=== PATIENT | male | born 1960 | race African-American/Black ===

== ENCOUNTER 2017-02-20 12:07 | Emergency (ER) | payer OTHER ==
[~2017-02-20] VITALS: Ht 172.7 cm; Wt 75.0 kg
[2017-02-20] MEDS ORDERED: IOHEXOL-300 100 ML BOTTLE ONE (12:11)
[2017-02-20] MEDS ORDERED: SODIUM CHLORIDE 0.9% 10ML VIAL ONE (12:11)
[2017-02-20] MEDS ORDERED: ONDANSETRON HCL 4MG/2ML VIAL IV STA (12:30)
[2017-02-20] MEDS ORDERED: MORPHINE SULFATE 4 MG/ML CPJ (NOT FOR IM USE) IV STA (12:30)
[2017-02-20] MEDS ORDERED: SODIUM CHLORIDE 0.9% 1,000 ML IV ONE (12:30)
[2017-02-20 12:53] LABS: HEMATOCRIT. 30.1 % (42.0-52.0); HEMOGLOBIN. 9.9 g/dL (14.0-18.0); MEAN CORPUSCULAR HEMOGLOBIN 31.3 pg (28.0-32.0); MEAN CORPUSCULAR VOLUME 95.1 fL (80.0-94.0); MEAN PLATELET VOLUME 7.2 fl (7.4-10.4); PLATELET 637 x1000/uL (130-400); RED BLOOD CELL COUNT 3.17 mill/uL (4.7-6.1); RED CELL DISTRIBUTION WIDTH 13.9 % (11.6-14.6)
[2017-02-20 12:58] LABS: PROTHROMBIN TIME 10.5 sec (9.4-11.6)
[2017-02-20] MEDS ORDERED: MORPHINE SULFATE 4 MG/ML CPJ (NOT FOR IM USE) IV ONE (13:00)
[2017-02-20] MEDS ORDERED: METOCLOPRAMIDE HCL 10MG/2ML VIAL IV ONE (13:00)
[2017-02-20 13:04] LABS: CARBON DIOXIDE 31 mEq/L (21-32); CHLORIDE 97 mEq/L (98-107)
[2017-02-20 13:09] LABS: TROPONIN I < 0.02 ng/mL (0.00-0.04)
[2017-02-20 13:13] LABS: PLATELET ESTIMATE INCREASED
[2017-02-20 18:30] VITALS: BP 160/91
== END 2017-02-20 18:53 | disposition home or self-care (01) ==
LOC: ER 12:35 → CANRESERV 15:18 → ENRESERV 15:18 → CANBEDREQ 17:20 → ER 18:53
DX: R10.84 Generalized abdominal pain (principal); R11.10 Vomiting, unspecified; I10 Essential (primary) hypertension; Z93.3 Colostomy status
CPT/HCPCS: 36415; 71010; 74177; 80053; 83605; 83690; 83880; 84484; 85025; 85610; 87040; 93005; 96374; 96375; 96376; 99285; A4216; J2270; J2765; Q9967; Z7610; J7030

== ENCOUNTER 2017-02-23 00:16 | Emergency (ER) | payer OTHER ==
[~2017-02-23] VITALS: Ht 175.3 cm; Wt 54.0 kg
[2017-02-23] MEDS ORDERED: HYDROCODONE/ACETAMINOPHEN 10/325MG TABLET PO ONE (01:00)
[2017-02-23 01:04] VITALS: BP 125/58
== END 2017-02-23 04:00 | disposition home or self-care (01) ==
LOC: ER 00:16
DX: Z46.6 Encounter for fitting and adjustment of urinary device (principal); R30.0 Dysuria; F17.200 Nicotine dependence, unspecified, uncomplicated; I10 Essential (primary) hypertension; E78.00 Pure hypercholesterolemia, unspecified; Z93.3 Colostomy status
CPT/HCPCS: 51702; 99284; Z7610; A4315

== ENCOUNTER 2017-02-23 19:38 | Emergency (ER) | payer OTHER ==
[~2017-02-23] VITALS: Ht 167.6 cm; Wt 73.0 kg
[2017-02-23 20:04] VITALS: BP 153/86
== END 2017-02-23 22:00 | disposition left against medical advice (07) ==
LOC: ER 19:38
DX: R10.9 Unspecified abdominal pain (principal); R20.2 Paresthesia of skin; Z98.890 Other specified postprocedural states; Z53.21 Procedure and treatment not carried out due to patient leaving prior to being seen by health care provider

== ENCOUNTER 2017-02-24 04:41 | Inpatient (IN) | payer OTHER ==
[~2017-02-24] VITALS: Ht 175.3 cm; Wt 61.2 kg
[2017-02-24] MEDS ORDERED: KETOROLAC 30MG/ML VIAL IV STA (08:28)
[2017-02-24] MEDS ORDERED: ONDANSETRON HCL 4MG/2ML VIAL IV STA (08:28)
[2017-02-24] MEDS ORDERED: MORPHINE SULFATE 4 MG/ML CPJ (NOT FOR IM USE) IV ONE ×2 (08:45→12:45)
[2017-02-24] MEDS ORDERED: METOCLOPRAMIDE HCL 10MG/2ML VIAL IV ONE (09:00)
[2017-02-24 09:03] LABS: BASOPHILS % 0.9 % (0.0-2.0); EOSINOPHILS % 0.4 % (0.0-5.0); HEMATOCRIT. 29.7 % (42.0-52.0); HEMOGLOBIN. 9.9 g/dL (14.0-18.0); MEAN CORPUSCULAR HEMOGLOBIN 32.2 pg (28.0-32.0); MEAN CORPUSCULAR VOLUME 96.2 fL (80.0-94.0); MEAN PLATELET VOLUME 7.3 fl (7.4-10.4); MONOCYTES % 5.3 % (2.0-8.0); NEUTROPHILS % 83.4 % (40.0-76.0); PLATELET 610 x1000/uL (130-400); RED BLOOD CELL COUNT 3.09 mill/uL (4.7-6.1); RED CELL DISTRIBUTION WIDTH 14.8 % (11.6-14.6)
[2017-02-24 09:10] LABS: PROTHROMBIN TIME 10.8 sec (9.4-11.6)
[2017-02-24 09:12] LABS: CHLORIDE 106 mEq/L (98-107)
[2017-02-24 09:24] LABS: CARBON DIOXIDE 29 mEq/L (21-32)
[2017-02-24] MEDS ORDERED: IOHEXOL-300 100 ML BOTTLE ONE (10:00)
[2017-02-24] MEDS ORDERED: SODIUM CHLORIDE 0.9% 10ML VIAL ONE (10:00)
[2017-02-24 11:36] LABS: CLARITY URINE CLOUDY (CLEAR); COLOR URINE YELLOW (YELLOW); GLUCOSE URINE NEGATIVE (NEGATIVE); KETONES URINE NEGATIVE (NEGATIVE); LEUKOCYTE ESTERASE URINE TRACE (NEGATIVE); NITRITE URINE NEGATIVE (NEGATIVE); OCCULT BLOOD URINE 3+ (NEGATIVE); PROTEIN URINE 2+ (NEGATIVE); SPECIFIC GRAVITY URINE 1.022 (1.005-1.030)
[2017-02-24] MEDS ORDERED: AMLODIPINE 2.5MG TABLET PO ONE (14:30)
[2017-02-24] MEDS ORDERED: HYDRALAZINE 20MG/ML VIAL IV NR (15:08)
[2017-02-24] MEDS ORDERED: IPRATROPIUM/ALBUTEROL 0.5-3(2.5)MG/3ML NEB INH PRN (15:30)
[2017-02-24 16:49] LABS: CARBON DIOXIDE 31 mEq/L (21-32); CHLORIDE 100 mEq/L (98-107); TOTAL IRON BINDING CAPACITY 398 ug/dL (250-450)
[2017-02-24] MEDS: ENALAPRIL 2.5MG/2ML VIAL 2ML IV SCH (17:22)
[2017-02-24 17:33] LABS: *AMPHETAMINES SCREEN URINE NEGATIVE (NEGATIVE); *BARBITURATES SCREEN URINE NEGATIVE (NEGATIVE); *BENZODIAZEPINES SCREEN URINE NEGATIVE (NEGATIVE); *COCAINE SCREEN URINE PRESUMTIVE POSITIVE (NEGATIVE); CANNABINOID URINE SCREEN PRESUMTIVE POSITIVE (NEGATIVE); METHADONE URINE SCREEN NEGATIVE (NEGATIVE); OPIATES URINE SCREEN NEGATIVE (NEGATIVE); PHENCYCLIDINE URINE SCREEN NEGATIVE (NEGATIVE)
[2017-02-24] MEDS: SODIUM CHLORIDE 0.9% 1,000 ML IV SCH (19:52)
[2017-02-24 20:10] VITALS: BP 113/71
[2017-02-24] MEDS: LORAZEPAM 2MG/ML CPJ IV PRN (23:02)
[2017-02-24 23:59] LABS: CREATINE KINASE 78 IU/L (39-308); TROPONIN I < 0.02 ng/mL (0.00-0.04)
[2017-02-25] VITALS (8 sets, daily range): BP systolic 111–213; BP diastolic 52–116
[2017-02-25 00:04] LABS: CREATINE KINASE MB FRACTION 1.3 ng/mL (0.5-3.6)
[2017-02-25] MEDS ORDERED: AMLO5TAB4 PO (02:23)
[2017-02-25] MEDS: ENALAPRIL 2.5MG/2ML VIAL 2ML IV SCH ×5 (03:29→23:13)
[2017-02-25] MEDS: LORAZEPAM 2MG/ML CPJ IV PRN ×2 (06:02→22:28)
[2017-02-25 07:39] LABS: BASOPHILS % 0.9 % (0.0-2.0); EOSINOPHILS % 0.4 % (0.0-5.0); HEMATOCRIT. 29.1 % (42.0-52.0); HEMOGLOBIN. 9.6 g/dL (14.0-18.0); MEAN CORPUSCULAR HEMOGLOBIN 31.6 pg (28.0-32.0); MEAN CORPUSCULAR VOLUME 95.8 fL (80.0-94.0); MONOCYTES % 6.1 % (2.0-8.0); NEUTROPHILS % 80.6 % (40.0-76.0); PLATELET 616 x1000/uL (130-400); RED BLOOD CELL COUNT 3.04 mill/uL (4.7-6.1); RED CELL DISTRIBUTION WIDTH 15.1 % (11.6-14.6)
[2017-02-25 08:11] LABS: CREATINE KINASE 58 IU/L (39-308); HDL CHOLESTEROL 57 mg/dL (40-59); LDL CHOLESTEROL 103 mg/dL (5-100)
[2017-02-25 08:18] LABS: CREATINE KINASE MB FRACTION 0.9 ng/mL (0.5-3.6); TROPONIN I < 0.02 ng/mL (0.00-0.04)
[2017-02-25 09:12] LABS: CLARITY URINE CLEAR (CLEAR); COLOR URINE YELLOW (YELLOW); GLUCOSE URINE NEGATIVE (NEGATIVE); KETONES URINE NEGATIVE (NEGATIVE); LEUKOCYTE ESTERASE URINE NEGATIVE (NEGATIVE); NITRITE URINE NEGATIVE (NEGATIVE); OCCULT BLOOD URINE 1+ (NEGATIVE); PH URINE 6.5 (4.5-8.0); PROTEIN URINE 1+ (NEGATIVE); UROBILINOGEN URINE 0.2 E.U./dL (0.2-1.0)
[2017-02-25 09:48] LABS: T4 FREE 1.13 ng/dL (0.76-1.46)
[2017-02-25] MEDS: PIPERACILLIN/TAZ 3.375G PREMIX 50 ML IV SCH ×2 (10:25→17:32)
[2017-02-25] MEDS: SODIUM CHLORIDE 0.9% 1,000 ML IV SCH (10:26)
[2017-02-25] MEDS: MORPHINE SULFATE 2 MG/ML CPJ (NOT FOR IM USE) IV PRN ×3 (11:09→19:40)
[2017-02-25] MEDS ORDERED: PNEUMOCOCCAL 23-VAL P-SAC VAC 0.5 ML IM ONE (12:00)
[2017-02-25] MEDS: ONDANSETRON HCL 4MG/2ML VIAL IV PRN (20:28)
[2017-02-25] MEDS: HYDRALAZINE 20MG/ML VIAL IV PRN (21:49)
[2017-02-26] MEDS: PIPERACILLIN/TAZ 3.375G PREMIX 50 ML IV SCH ×3 (02:45→18:18)
[2017-02-26] MEDS: ENALAPRIL 2.5MG/2ML VIAL 2ML IV SCH (05:26)
[2017-02-26 07:19] LABS: BASOPHILS % 0.7 % (0.0-2.0); EOSINOPHILS % 0.2 % (0.0-5.0); HEMATOCRIT. 32.1 % (42.0-52.0); HEMOGLOBIN. 10.7 g/dL (14.0-18.0); LYMPHOCYTES % 11.8 % (20.0-50.0); MEAN CORPUSCULAR HEMOGLOBIN 31.9 pg (28.0-32.0); MEAN CORPUSCULAR VOLUME 95.9 fL (80.0-94.0); MEAN PLATELET VOLUME 7.2 fl (7.4-10.4); NEUTROPHILS % 81.3 % (40.0-76.0); PLATELET 614 x1000/uL (130-400); RED BLOOD CELL COUNT 3.34 mill/uL (4.7-6.1); RED CELL DISTRIBUTION WIDTH 15.1 % (11.6-14.6)
[2017-02-26 08:12] LABS: CARBON DIOXIDE 31 mEq/L (21-32); CHLORIDE 99 mEq/L (98-107)
[2017-02-26 09:42] VITALS: BP 193/99
[2017-02-26] MEDS: MORPHINE SULFATE 2 MG/ML CPJ (NOT FOR IM USE) IV PRN ×3 (09:53→21:29)
[2017-02-26] MEDS: ONDANSETRON HCL 4MG/2ML VIAL IV PRN (09:53)
[2017-02-26] MEDS: HYDRALAZINE 20MG/ML VIAL IV PRN (09:53)
[2017-02-26] MEDS: SODIUM CHLORIDE 0.9% 1,000 ML IV SCH (10:04)
[2017-02-26 11:25] VITALS: BP 193/115
[2017-02-26] MEDS: METOCLOPRAMIDE HCL 10MG/2ML VIAL IV SCH ×2 (11:31→18:18)
[2017-02-26] MEDS: ENALAPRIL 1.25MG/ML VIAL 1ML IV SCH ×2 (11:32→18:00)
[2017-02-26 13:28] VITALS: BP 137/82
[2017-02-26 16:00] VITALS: BP 120/70
[2017-02-26 20:00] VITALS: BP 123/65
[2017-02-27] VITALS: BP 137/78
[2017-02-27] MEDS: ENALAPRIL 1.25MG/ML VIAL 1ML IV SCH ×5 (02:41→23:36)
[2017-02-27] MEDS: METOCLOPRAMIDE HCL 10MG/2ML VIAL IV SCH ×5 (02:42→23:35)
[2017-02-27] MEDS: PIPERACILLIN/TAZ 3.375G PREMIX 50 ML IV SCH ×3 (02:42→18:23)
[2017-02-27 04:00] VITALS: BP 139/79
[2017-02-27] MEDS ORDERED: DIATR MEGLU/DIATRIZOATE SOLN 120ML ONE (07:00)
[2017-02-27 07:30] LABS: EOSINOPHILS % 0.8 % (0.0-5.0); HEMATOCRIT. 27.6 % (42.0-52.0); HEMOGLOBIN. 9.3 g/dL (14.0-18.0); LYMPHOCYTES % 16.6 % (20.0-50.0); MEAN CORPUSCULAR VOLUME 95.5 fL (80.0-94.0); MEAN PLATELET VOLUME 7.1 fl (7.4-10.4); MONOCYTES % 9.3 % (2.0-8.0); NEUTROPHILS % 72.3 % (40.0-76.0); PLATELET 528 x1000/uL (130-400); RED BLOOD CELL COUNT 2.89 mill/uL (4.7-6.1); RED CELL DISTRIBUTION WIDTH 14.9 % (11.6-14.6)
[2017-02-27 08:00] VITALS: BP 142/81
[2017-02-27 08:39] LABS: CARBON DIOXIDE 31 mEq/L (21-32); CHLORIDE 101 mEq/L (98-107)
[2017-02-27] MEDS: SODIUM CHLORIDE 0.9% 1,000 ML IV SCH ×2 (10:29→11:24)
[2017-02-27 12:00] VITALS: BP 154/84
[2017-02-27] MEDS: ACETAMINOPHEN 325MG TABLET PO PRN ×3 (12:21→21:43)
[2017-02-27 16:00] VITALS: BP 124/98
[2017-02-27 20:00] VITALS: BP 134/76
[2017-02-28] VITALS: BP 150/66
[2017-02-28] MEDS: PIPERACILLIN/TAZ 3.375G PREMIX 50 ML IV SCH ×2 (02:24→09:17)
[2017-02-28 04:00] VITALS: BP 139/79
[2017-02-28] MEDS: METOCLOPRAMIDE HCL 10MG/2ML VIAL IV SCH ×3 (06:25→16:12)
[2017-02-28] MEDS: ENALAPRIL 1.25MG/ML VIAL 1ML IV SCH ×2 (06:27→11:52)
[2017-02-28 07:26] LABS: BASOPHILS % 0.9 % (0.0-2.0); HEMATOCRIT. 28.1 % (42.0-52.0); HEMOGLOBIN. 9.4 g/dL (14.0-18.0); LYMPHOCYTES % 21.5 % (20.0-50.0); MEAN CORPUSCULAR HEMOGLOBIN 31.8 pg (28.0-32.0); MEAN CORPUSCULAR VOLUME 95.6 fL (80.0-94.0); MEAN PLATELET VOLUME 6.6 fl (7.4-10.4); MONOCYTES % 9.8 % (2.0-8.0); NEUTROPHILS % 65.8 % (40.0-76.0); PLATELET 499 x1000/uL (130-400); RED BLOOD CELL COUNT 2.94 mill/uL (4.7-6.1); RED CELL DISTRIBUTION WIDTH 15.1 % (11.6-14.6)
[2017-02-28 07:52] LABS: CARBON DIOXIDE 28 mEq/L (21-32); CHLORIDE 104 mEq/L (98-107)
[2017-02-28 08:00] VITALS: BP 158/82
[2017-02-28 11:52] VITALS: BP 157/89
[2017-02-28] MEDS ORDERED: CLONIDINE 0.1MG TABLET PO PRN (13:00)
[2017-02-28 16:00] VITALS: BP 133/77
[2017-02-28] MEDS: ACETAMINOPHEN 325MG TABLET PO PRN (18:02)
[2017-02-28] MEDS: HYDROCODONE/ACETAMINOPHEN 5/325MG TABLET PO PRN ×2 (18:21→22:23)
[2017-02-28 20:02] VITALS: BP 132/80
[2017-03-01] VITALS: BP 115/78
[2017-03-01] MEDS: HYDROCODONE/ACETAMINOPHEN 5/325MG TABLET PO PRN ×2 (02:34→06:26)
[2017-03-01 04:00] VITALS: BP 165/86
[2017-03-01] MEDS: METOCLOPRAMIDE HCL 10MG/2ML VIAL IV SCH ×3 (05:54→12:00)
[2017-03-01 08:05] VITALS: BP 148/85
[2017-03-01 12:00] VITALS: BP 155/85
[2017-03-01 14:00] VITALS: BP 155/85
== END 2017-03-01 14:20 | disposition home or self-care (01) | DRG 247 ==
LOC: ER 04:41 → 8WST 14:14 → ENRESERV 15:26
PROVIDERS: ADMIT Internal Medicine; ATTEND Internal Medicine
DX: K56.69 Other intestinal obstruction (principal); E44.0 Moderate protein-calorie malnutrition; R65.10 Systemic inflammatory response syndrome (SIRS) of non-infectious origin without acute organ dysfunction; I10 Essential (primary) hypertension; J44.9 Chronic obstructive pulmonary disease, unspecified; F17.210 Nicotine dependence, cigarettes, uncomplicated; G40.909 Epilepsy, unspecified, not intractable, without status epilepticus; N39.0 Urinary tract infection, site not specified; F19.10 Other psychoactive substance abuse, uncomplicated; Z79.899 Other long term (current) drug therapy; Z90.49 Acquired absence of other specified parts of digestive tract; Z93.3 Colostomy status
CPT/HCPCS: 36415; 74000; 74177; 74250; 80048; 80053; 80061; 80305; 81001; 82270; 82550; 82553; 83540; 83550; 83690; 83735; 84439; 84443; 84481; 84484; 85025; 85044; 85610; 87040; 87086; 90732; 93005; 93970; 96374; 96375; 96376; 97116; 97162; 97530; 99285; A4216; J0360; J2060; J2270; J2405; J2543; J2765; J3490; J7030; Q9963; Q9967; A4315

== ENCOUNTER 2017-03-26 14:29 | Inpatient (IN) | payer OTHER ==
[~2017-03-26] VITALS: Ht 175.3 cm; Wt 59.0 kg
[~2017-03-26 14:29] MED LIST: AMLO5TAB4 PO
[2017-03-26] MEDS ORDERED: SODIUM CHLORIDE 0.9% 1,000 ML IV ONE (15:20)
[2017-03-26] MEDS ORDERED: ONDANSETRON HCL 4MG/2ML VIAL IV STA (15:20)
[2017-03-26] MEDS ORDERED: MORPHINE SULFATE 4 MG/ML CPJ (NOT FOR IM USE) IV STA (15:20)
[2017-03-26] MEDS ORDERED: HYDRALAZINE 20MG/ML VIAL IV ONE ×2 (15:30→16:45)
[2017-03-26 16:08] LABS: BASOPHILS % 0.8 % (0.0-2.0); EOSINOPHILS % 0.7 % (0.0-5.0); HEMATOCRIT. 33.2 % (42.0-52.0); HEMOGLOBIN. 10.9 g/dL (14.0-18.0); LYMPHOCYTES % 15.1 % (20.0-50.0); MEAN CORPUSCULAR HEMOGLOBIN 31.7 pg (28.0-32.0); MEAN CORPUSCULAR VOLUME 96.4 fL (80.0-94.0); MEAN PLATELET VOLUME 7.1 fl (7.4-10.4); MONOCYTES % 4.7 % (2.0-8.0); NEUTROPHILS % 78.7 % (40.0-76.0); PLATELET 333 x1000/uL (130-400); RED BLOOD CELL COUNT 3.44 mill/uL (4.7-6.1)
[2017-03-26 16:09] LABS: CHLORIDE 103 mEq/L (98-107)
[2017-03-26 16:11] LABS: PARTIAL THROMBOPLASTIN TIME 23.7 sec (23.4-31.0); PROTHROMBIN TIME 10.5 sec (9.4-11.6)
[2017-03-26 16:18] LABS: CARBON DIOXIDE 30 mEq/L (21-32)
[2017-03-26 16:19] LABS: TROPONIN I < 0.02 ng/mL (0.00-0.04)
[2017-03-26 16:44] LABS: CLARITY URINE CLEAR (CLEAR); COLOR URINE YELLOW (YELLOW); GLUCOSE URINE NEGATIVE (NEGATIVE); KETONES URINE NEGATIVE (NEGATIVE); LEUKOCYTE ESTERASE URINE NEGATIVE (NEGATIVE); NITRITE URINE NEGATIVE (NEGATIVE); OCCULT BLOOD URINE NEGATIVE (NEGATIVE); PH URINE 8.5 (4.5-8.0); PROTEIN URINE NEGATIVE (NEGATIVE); UROBILINOGEN URINE 0.2 E.U./dL (0.2-1.0)
[2017-03-26] MEDS ORDERED: MORPHINE SULFATE 4 MG/ML CPJ (NOT FOR IM USE) IV ONE (18:30)
[2017-03-26] MEDS ORDERED: ONDANSETRON HCL 4MG/2ML VIAL IV ONE (19:00)
[2017-03-26] MEDS ORDERED: CLONIDINE 0.2MG TABLET PO ONE (19:15)
[2017-03-26] MEDS ORDERED: METOCLOPRAMIDE HCL 10MG/2ML VIAL IV ONE (19:15)
[2017-03-26] MEDS ORDERED: CLONIDINE 0.1MG TABLET PO ONE (21:00)
[2017-03-27] VITALS (7 sets, daily range): BP systolic 104–142; BP diastolic 59–73
[2017-03-27] MEDS ORDERED: SERT25TA74 PO (01:13)
[2017-03-27] MEDS ORDERED: LOSA50TA20 PO (01:13)
[2017-03-27] MEDS ORDERED: HYDR25TA PO (01:13)
[2017-03-27] MEDS ORDERED: ONDANSETRON HCL 4MG/2ML VIAL IV PRN (02:30)
[2017-03-27] MEDS ORDERED: CLONIDINE 0.1MG TABLET PO PRN ×2 (02:30→02:45)
[2017-03-27] MEDS: DEXT 5%/0.45% NACL KCL 20MEQ/L 1,000 ML IV SCH ×2 (04:06→12:29)
[2017-03-27] MEDS: METOCLOPRAMIDE HCL 10MG/2ML VIAL IV SCH ×2 (06:20→12:00)
[2017-03-27 08:36] LABS: CARBON DIOXIDE 29 mEq/L (21-32); CHLORIDE 101 mEq/L (98-107)
[2017-03-27 08:41] LABS: HDL CHOLESTEROL 76 mg/dL (40-59); LDL CHOLESTEROL 111 mg/dL (5-100)
[2017-03-27] MEDS: AMLODIPINE 5MG TABLET PO SCH ×2 (08:45→08:56)
[2017-03-27] MEDS: LEVETIRACETAM 500MG TABLET PO SCH ×2 (08:45→08:55)
[2017-03-27] MEDS: SERTRALINE HCL 25MG TABLET PO SCH ×2 (08:45→08:56)
[2017-03-27] MEDS: MORPHINE SULFATE 4 MG/ML CPJ (NOT FOR IM USE) IV PRN ×2 (09:31→17:09)
[2017-03-27] MEDS ORDERED: INFLUENZA VIRUS VACCINE 0.5ML SYR IM ONE (12:00)
== END 2017-03-27 18:35 | disposition home or self-care (01) | DRG 282 ==
LOC: ER 14:29 → 5WST 15:23 → EDBEDREQ 20:18 → ENRESERV 20:37
PROVIDERS: ADMIT Internal Medicine; ATTEND Internal Medicine
DX: K85.90 Acute pancreatitis without necrosis or infection, unspecified (principal); R18.8 Other ascites; I16.0 Hypertensive urgency; R11.2 Nausea with vomiting, unspecified; I10 Essential (primary) hypertension; K80.20 Calculus of gallbladder without cholecystitis without obstruction; Z93.3 Colostomy status; Z79.899 Other long term (current) drug therapy
CPT/HCPCS: 36415; 71010; 74176; 80053; 80061; 81003; 83690; 84484; 85025; 85610; 85730; 86850; 86900; 90686; 93005; 96361; 96374; 96375; 96376; 99285; J0360; J2270; J2405; J2765; J7030

== ENCOUNTER 2017-09-24 13:23 | Emergency (ER) | payer OTHER ==
[~2017-09-24] VITALS: Ht 177.8 cm; Wt 69.0 kg
[~2017-09-24 13:23] MED LIST changes: +HYDR25TA PO; +LOSA50TA20 PO; +SERT25TA74 PO
[2017-09-24 13:34] VITALS: BP 183/81
== END 2017-09-24 16:30 | disposition home or self-care (01) ==
LOC: ER 14:28
DX: Z43.3 Encounter for attention to colostomy (principal); I10 Essential (primary) hypertension; G40.909 Epilepsy, unspecified, not intractable, without status epilepticus; F17.210 Nicotine dependence, cigarettes, uncomplicated; Z87.19 Personal history of other diseases of the digestive system; Z79.899 Other long term (current) drug therapy
CPT/HCPCS: 99284

== ENCOUNTER 2017-12-02 13:39 | Emergency (ER) | payer OTHER ==
[~2017-12-02] VITALS: Ht 175.3 cm; Wt 64.0 kg
[2017-12-02 13:51] VITALS: BP 174/55
== END 2017-12-02 16:36 | disposition home or self-care (01) ==
LOC: ER 16:26
DX: Z43.3 Encounter for attention to colostomy (principal); I10 Essential (primary) hypertension
CPT/HCPCS: 99281

== ENCOUNTER 2017-12-17 15:06 | Observation (INO) | payer OTHER ==
[~2017-12-17] VITALS: Ht 165.1 cm; Wt 68.0 kg
[2017-12-17] MEDS ORDERED: MORPHINE SULFATE 4 MG/ML CPJ (NOT FOR IM USE) IV STA (16:35)
[2017-12-17] MEDS ORDERED: SODIUM CHLORIDE 0.9% 1,000 ML IV ONE (16:35)
[2017-12-17] MEDS ORDERED: ONDANSETRON HCL 4MG/2ML VIAL IV STA (16:35)
[2017-12-17 17:00] LABS: CLARITY URINE CLEAR (CLEAR); COLOR URINE YELLOW (YELLOW); KETONES URINE NEGATIVE (NEGATIVE); LEUKOCYTE ESTERASE URINE NEGATIVE (NEGATIVE); NITRITE URINE NEGATIVE (NEGATIVE); OCCULT BLOOD URINE TRACE (NEGATIVE); PH URINE 8.5 (4.5-8.0); PROTEIN URINE NEGATIVE (NEGATIVE); SPECIFIC GRAVITY URINE 1.011 (1.005-1.030); UROBILINOGEN URINE 0.2 E.U./dL (0.2-1.0)
[2017-12-17 17:15] LABS: *AMPHETAMINES SCREEN URINE NEGATIVE (NEGATIVE); *BARBITURATES SCREEN URINE NEGATIVE (NEGATIVE); *BENZODIAZEPINES SCREEN URINE NEGATIVE (NEGATIVE); CANNABINOID URINE SCREEN PRESUMTIVE POSITIVE (NEGATIVE); PHENCYCLIDINE URINE SCREEN NEGATIVE (NEGATIVE)
[2017-12-17 17:16] LABS: *COCAINE SCREEN URINE PRESUMTIVE POSITIVE (NEGATIVE); METHADONE URINE SCREEN NEGATIVE (NEGATIVE); OPIATES URINE SCREEN NEGATIVE (NEGATIVE)
[2017-12-17 17:42] LABS: BASOPHILS % 0.7 % (0.0-2.0); EOSINOPHILS % 0.4 % (0.0-5.0); HEMATOCRIT. 34.8 % (42.0-52.0); HEMOGLOBIN. 11.2 g/dL (14.0-18.0); LYMPHOCYTES % 12.6 % (20.0-50.0); MEAN CORPUSCULAR HEMOGLOBIN 28.8 pg (28.0-32.0); MEAN CORPUSCULAR VOLUME 89.6 fL (80.0-94.0); MEAN PLATELET VOLUME 7.9 fl (7.4-10.4); MONOCYTES % 2.9 % (2.0-8.0); NEUTROPHILS % 83.4 % (40.0-76.0); PLATELET 284 x1000/uL (130-400); RED BLOOD CELL COUNT 3.88 mill/uL (4.7-6.1); RED CELL DISTRIBUTION WIDTH 14.3 % (11.6-14.6)
[2017-12-17 17:48] LABS: CHLORIDE 101 mEq/L (98-107)
[2017-12-17 17:50] LABS: PARTIAL THROMBOPLASTIN TIME 25.9 sec (23.4-31.0); PROTHROMBIN TIME 10.7 sec (9.4-11.6)
[2017-12-17 17:55] LABS: ETHANOL BLOOD < 10 mg/dL
[2017-12-17] MEDS ORDERED: CLONIDINE 0.2MG TABLET PO ONE (20:45)
[2017-12-17] MEDS ORDERED: ONDANSETRON HCL 4MG/2ML VIAL IV ONE (22:00)
[2017-12-18] MEDS ORDERED: LORAZEPAM 2MG/ML CPJ IV ONE (01:45)
[2017-12-18] MEDS ORDERED: NITROGLYCERIN 0.4MG TABLET SL SL PRN (07:00)
[2017-12-18] MEDS ORDERED: NITROGLYCERIN OINT 1GM/INCH UDPKT TD ONE (07:00)
[2017-12-18] MEDS ORDERED: MAGNESIUM/ALUMINUM HYDROXIDE/SIMETHICONE 30ML UDC PO PRN (09:15)
[2017-12-18] MEDS ORDERED: NA PHOS,M-B/NA PHOS,DI-BA ENEMA 118ML PR PRN (09:15)
[2017-12-18] MEDS ORDERED: DIPHENHYDRAMINE 50MG/ML VIAL IV PRN (09:15)
[2017-12-18] MEDS ORDERED: DOCUSATE SODIUM 100MG CAPSULE PO PRN (09:15)
[2017-12-18] MEDS ORDERED: ACETAMINOPHEN 650MG SUPP PR PRN (09:15)
[2017-12-18] MEDS ORDERED: IPRATROPIUM/ALBUTEROL 0.5-3(2.5)MG/3ML NEB INH PRN (09:15)
[2017-12-18] MEDS ORDERED: CLONIDINE 0.1MG TABLET PO PRN ×2 (09:15→13:30)
[2017-12-18] MEDS ORDERED: ACETAMINOPHEN 325MG TABLET PO PRN (09:15)
[2017-12-18] MEDS ORDERED: GUAIFENESIN 200MG/10ML SUGAR FREE UDC PO PRN (09:15)
[2017-12-18] MEDS ORDERED: ACETAMINOPHEN 650MG/20.3ML UDC GT PRN (09:15)
[2017-12-18] MEDS ORDERED: LORAZEPAM 2MG/ML CPJ IV PRN (09:15)
[2017-12-18] MEDS ORDERED: ONDANSETRON HCL 4MG/2ML VIAL IV PRN (09:15)
[2017-12-18 16:00] VITALS: BP 153/102
[2017-12-18 16:06] VITALS: BP 153/102
[2017-12-18 16:34] LABS: TOTAL IRON BINDING CAPACITY 481 ug/dL (250-450)
[2017-12-18 17:05] LABS: VITAMIN B12 SERUM 556 pg/mL (211-911)
[2017-12-18 17:07] LABS: FERRITIN 12 ng/mL (22-322)
[2017-12-18 17:13] LABS: FOLIC ACID (FOLATE) SERUM > 20.00 ng/mL (>5.38)
[2017-12-18] MEDS: MULTIVITAMINS,THER W-MINERALS TABLET PO SCH (18:01)
[2017-12-18] MEDS: THIAMINE HCL 100MG TABLET PO SCH (18:01)
[2017-12-18] MEDS: HYDROCHLOROTHIAZIDE 12.5MG CAPSULE PO SCH (18:01)
[2017-12-18] MEDS: FOLIC ACID 1MG TABLET PO SCH (18:01)
[2017-12-18] MEDS: PANTOPRAZOLE SODIUM 40 MG/VIAL IV SCH (18:02)
[2017-12-18] MEDS ORDERED: CLON0.5T MT (18:22)
[2017-12-18 18:32] LABS: AMMONIA 40 uMol/L (<32)
[2017-12-18] MEDS: HYDROCODONE/ACETAMINOPHEN 5/325MG TABLET PO PRN (18:32)
[2017-12-18 18:48] LABS: CREATINE KINASE MB FRACTION 18.4 ng/mL (0.5-3.6); T4 FREE 0.9 ng/dL (0.76-1.46)
[2017-12-18 20:00] VITALS: BP 126/64
[2017-12-19] VITALS: BP 151/98
[2017-12-19 02:24] LABS: CREATINE KINASE MB FRACTION 14.3 ng/mL (0.5-3.6)
[2017-12-19 04:00] VITALS: BP 133/69
[2017-12-19] MEDS: HYDROCODONE/ACETAMINOPHEN 5/325MG TABLET PO PRN (04:30)
[2017-12-19 06:38] LABS: BG BASE EXCESS 5.2 mmol/L (-2.0-2.0); BG CARBOXYHEMOGLOBIN 1.3 % (0.5-1.5); BG DEOXYHEMOGLOBIN 3.9 % (0.0-5.0); BG HCO3 ACT 29.9 mmol/L (22.0-26.0); BG METHEMOGLOBIN 0.3 % (0.0-1.5); BG OXYHEMOGLOBIN 94.5 % (94.0-97.0); BG PCO2 44.2 mmHg (35.0-45.0); BG PH 7.448 (7.350-7.450); BG SAMPLE SITE RIGHT RADIAL; BG TOTAL HEMOGLOBIN 13.2 g/dL (12.0-18.0); BG VENT MODE ROOM AIR
[2017-12-19 07:07] LABS: BASOPHILS % 0.7 % (0.0-2.0); EOSINOPHILS % 0.7 % (0.0-5.0); HEMATOCRIT. 38.1 % (42.0-52.0); HEMOGLOBIN. 12.4 g/dL (14.0-18.0); LYMPHOCYTES % 28.2 % (20.0-50.0); MEAN CORPUSCULAR HEMOGLOBIN 28.9 pg (28.0-32.0); MEAN CORPUSCULAR VOLUME 88.8 fL (80.0-94.0); MEAN PLATELET VOLUME 8.2 fl (7.4-10.4); MONOCYTES % 11.2 % (2.0-8.0); NEUTROPHILS % 59.2 % (40.0-76.0); PLATELET 323 x1000/uL (130-400); RED BLOOD CELL COUNT 4.29 mill/uL (4.7-6.1); RED CELL DISTRIBUTION WIDTH 14.6 % (11.6-14.6)
[2017-12-19 07:35] LABS: CHLORIDE 97 mEq/L (98-107)
[2017-12-19 07:44] LABS: HDL CHOLESTEROL 74 mg/dL (40-59); LDL CHOLESTEROL 149 mg/dL (5-100)
[2017-12-19 07:49] LABS: T4 FREE 0.95 ng/dL (0.76-1.46)
[2017-12-19] MEDS: THIAMINE HCL 100MG TABLET PO SCH (08:26)
[2017-12-19] MEDS: PANTOPRAZOLE SODIUM 40 MG/VIAL IV SCH (08:26)
[2017-12-19] MEDS: LOSARTAN POTASSIUM 50 MG TABLET PO SCH (08:26)
[2017-12-19] MEDS: HYDROCHLOROTHIAZIDE 12.5MG CAPSULE PO SCH (08:26)
[2017-12-19] MEDS: FOLIC ACID 1MG TABLET PO SCH (08:26)
[2017-12-19] MEDS: MULTIVITAMINS,THER W-MINERALS TABLET PO SCH (08:26)
[2017-12-19 12:00] VITALS: BP 144/78
[2017-12-19] MEDS: HYDROCODONE/ACETAMINOPHEN 10/325MG TABLET PO PRN ×2 (13:06→21:32)
[2017-12-19] MEDS: SODIUM CHLORIDE 0.45% 1,000 ML IV SCH ×2 (13:10→21:31)
[2017-12-19] MEDS ORDERED: LIDOCAINE HCL/PF 1% 2ML VIAL ONE (13:57)
[2017-12-19 16:00] VITALS: BP 123/54
[2017-12-19 20:00] VITALS: BP 120/55
[2017-12-19] MEDS: ATORVASTATIN CALCIUM 40MG TABLET PO SCH (21:31)
[2017-12-20] VITALS: BP 140/65
[2017-12-20 04:00] VITALS: BP 132/82
[2017-12-20 06:44] LABS: BASOPHILS % 0.9 % (0.0-2.0); EOSINOPHILS % 1.4 % (0.0-5.0); HEMOGLOBIN. 11.7 g/dL (14.0-18.0); LYMPHOCYTES % 38.7 % (20.0-50.0); MEAN CORPUSCULAR HEMOGLOBIN 28.8 pg (28.0-32.0); MEAN CORPUSCULAR VOLUME 88.7 fL (80.0-94.0); MEAN PLATELET VOLUME 7.7 fl (7.4-10.4); MONOCYTES % 10.2 % (2.0-8.0); NEUTROPHILS % 48.8 % (40.0-76.0); PLATELET 303 x1000/uL (130-400); RED BLOOD CELL COUNT 4.06 mill/uL (4.7-6.1); RED CELL DISTRIBUTION WIDTH 14.5 % (11.6-14.6)
[2017-12-20 07:03] LABS: CHLORIDE 97 mEq/L (98-107)
[2017-12-20 08:00] VITALS: BP 139/78
[2017-12-20] MEDS: PANTOPRAZOLE SODIUM 40 MG/VIAL IV SCH (08:18)
[2017-12-20] MEDS: HYDROCODONE/ACETAMINOPHEN 10/325MG TABLET PO PRN ×3 (08:19→18:17)
[2017-12-20] MEDS: FOLIC ACID 1MG TABLET PO SCH (08:19)
[2017-12-20] MEDS: LOSARTAN POTASSIUM 50 MG TABLET PO SCH (08:19)
[2017-12-20] MEDS: THIAMINE HCL 100MG TABLET PO SCH (08:19)
[2017-12-20] MEDS: ATORVASTATIN CALCIUM 40MG TABLET PO SCH (08:19)
[2017-12-20] MEDS: SODIUM CHLORIDE 0.45% 1,000 ML IV SCH ×2 (08:20→15:43)
[2017-12-20] MEDS: MULTIVITAMINS,THER W-MINERALS TABLET PO SCH (09:00)
[2017-12-20 12:00] VITALS: BP 141/72
[2017-12-20 16:00] VITALS: BP 126/74
[2017-12-20 20:00] VITALS: BP 128/63
[2017-12-21] VITALS (7 sets, daily range): BP systolic 115–166; BP diastolic 53–83
[2017-12-21] MEDS: SODIUM CHLORIDE 0.45% 1,000 ML IV SCH ×2 (04:53→20:50)
[2017-12-21] MEDS: PANTOPRAZOLE SODIUM 40 MG/VIAL IV SCH (09:07)
[2017-12-21] MEDS: LOSARTAN POTASSIUM 50 MG TABLET PO SCH (09:08)
[2017-12-21] MEDS: FOLIC ACID 1MG TABLET PO SCH (09:09)
[2017-12-21] MEDS: MULTIVITAMINS,THER W-MINERALS TABLET PO SCH (09:09)
[2017-12-21] MEDS: THIAMINE HCL 100MG TABLET PO SCH (09:09)
[2017-12-21] MEDS: HYDROCODONE/ACETAMINOPHEN 10/325MG TABLET PO PRN ×2 (16:32→20:49)
[2017-12-21] MEDS: ATORVASTATIN CALCIUM 40MG TABLET PO SCH (20:49)
[2017-12-22] MEDS: SODIUM CHLORIDE 0.45% 1,000 ML IV SCH
[2017-12-22 04:33] VITALS: BP 139/72
[2017-12-22 06:32] LABS: BASOPHILS % 0.7 % (0.0-2.0); EOSINOPHILS % 2.5 % (0.0-5.0); HEMATOCRIT. 32.6 % (42.0-52.0); HEMOGLOBIN. 10.7 g/dL (14.0-18.0); LYMPHOCYTES % 27.6 % (20.0-50.0); MEAN CORPUSCULAR HEMOGLOBIN 29.1 pg (28.0-32.0); MEAN CORPUSCULAR VOLUME 89.1 fL (80.0-94.0); MEAN PLATELET VOLUME 7.6 fl (7.4-10.4); NEUTROPHILS % 58.2 % (40.0-76.0); PLATELET 281 x1000/uL (130-400); RED BLOOD CELL COUNT 3.66 mill/uL (4.7-6.1); RED CELL DISTRIBUTION WIDTH 14.2 % (11.6-14.6)
[2017-12-22 06:53] LABS: CHLORIDE 105 mEq/L (98-107)
[2017-12-22 08:33] VITALS: BP 123/75
[2017-12-22] MEDS ORDERED: FAMOTIDINE 20MG TABLET PO SCH (09:00)
[2017-12-22] MEDS: MULTIVITAMINS,THER W-MINERALS TABLET PO SCH (09:20)
[2017-12-22] MEDS: LOSARTAN POTASSIUM 50 MG TABLET PO SCH (09:20)
[2017-12-22] MEDS: THIAMINE HCL 100MG TABLET PO SCH (09:20)
[2017-12-22] MEDS: FOLIC ACID 1MG TABLET PO SCH (09:20)
[2017-12-22 12:00] VITALS: BP 119/75
[2017-12-22 15:24] VITALS: BP 119/75
== END 2017-12-22 15:43 | disposition home or self-care (01) ==
LOC: ER 15:57 → 8WST 12-18 08:25 → INTOOBSV 12-18 08:25 → EDBEDREQ 12-18 08:38 → CANRESERV 12-18 08:39 → ENRESERV 12-18 08:39
PROVIDERS: ADMIT Internal Medicine; ATTEND Internal Medicine
DX: G92 Toxic encephalopathy (principal); G40.909 Epilepsy, unspecified, not intractable, without status epilepticus; F10.129 Alcohol abuse with intoxication, unspecified; F12.129 Cannabis abuse with intoxication, unspecified; F14.129 Cocaine abuse with intoxication, unspecified; D64.9 Anemia, unspecified; E78.5 Hyperlipidemia, unspecified; F41.9 Anxiety disorder, unspecified; I10 Essential (primary) hypertension; M19.90 Unspecified osteoarthritis, unspecified site; K80.20 Calculus of gallbladder without cholecystitis without obstruction; M62.82 Rhabdomyolysis; N17.9 Acute kidney failure, unspecified; Z86.73 Personal history of transient ischemic attack (TIA), and cerebral infarction without residual deficits; Z87.891 Personal history of nicotine dependence; K40.90 Unilateral inguinal hernia, without obstruction or gangrene, not specified as recurrent
CPT/HCPCS: 36415; 36600; 70450; 70551; 71045; 74176; 76700; 80048; 80053; 80061; 80076; 80305; 81003; 82140; 82270; 82375; 82550; 82553; 82607; 82728; 82746; 82805; 83036; 83540; 83550; 83690; 83735; 84439; 84443; 84481; 84484; 85025; 85610; 85730; 93005; 93306; 96361; 96374; 96375; 96376; 97162; 97166; 99285; C1893; C9113; G0378; G0482; J2060; J2270; J2405; J3490; J7030

== ENCOUNTER 2018-01-23 14:21 | Emergency (ER) | payer OTHER ==
[~2018-01-23 14:21] MED LIST changes: +CLON0.5T MT
== END 2018-01-23 15:44 | disposition left against medical advice (07) ==
LOC: ER 15:18
DX: Z53.21 Procedure and treatment not carried out due to patient leaving prior to being seen by health care provider (principal)

== ENCOUNTER 2018-01-28 22:35 | Emergency (ER) | payer OTHER ==
[~2018-01-28] VITALS: Ht 175.3 cm; Wt 63.0 kg
[2018-01-29] MEDS ORDERED: KETOROLAC 30MG/ML VIAL IV STA (04:11)
[2018-01-29] MEDS ORDERED: SODIUM CHLORIDE 0.9% 1,000 ML IV ONE (04:11)
[2018-01-29 04:54] LABS: BASOPHILS % 0.8 % (0.0-2.0); HEMATOCRIT. 30.1 % (42.0-52.0); HEMOGLOBIN. 9.8 g/dL (14.0-18.0); LYMPHOCYTES % 26.4 % (20.0-50.0); MEAN CORPUSCULAR HEMOGLOBIN 29.4 pg (28.0-32.0); MEAN CORPUSCULAR VOLUME 90.7 fL (80.0-94.0); MEAN PLATELET VOLUME 7.4 fl (7.4-10.4); MONOCYTES % 8.1 % (2.0-8.0); NEUTROPHILS % 61.7 % (40.0-76.0); PLATELET 360 x1000/uL (130-400); RED BLOOD CELL COUNT 3.31 mill/uL (4.7-6.1); RED CELL DISTRIBUTION WIDTH 15.3 % (11.6-14.6)
[2018-01-29 05:01] LABS: CHLORIDE 108 mEq/L (98-107)
[2018-01-29 05:05] LABS: ETHANOL BLOOD < 10 mg/dL
[2018-01-29 07:42] LABS: *AMPHETAMINES SCREEN URINE NEGATIVE (NEGATIVE); *BARBITURATES SCREEN URINE NEGATIVE (NEGATIVE)
[2018-01-29 07:43] LABS: *BENZODIAZEPINES SCREEN URINE NEGATIVE (NEGATIVE); *COCAINE SCREEN URINE PRESUMTIVE POSITIVE (NEGATIVE); CANNABINOID URINE SCREEN PRESUMTIVE POSITIVE (NEGATIVE); METHADONE URINE SCREEN NEGATIVE (NEGATIVE); OPIATES URINE SCREEN NEGATIVE (NEGATIVE); PHENCYCLIDINE URINE SCREEN NEGATIVE (NEGATIVE)
[2018-01-29] MEDS ORDERED: POTASSIUM CHLORIDE 20MEQ TABLET SR PO ONE (09:00)
[2018-01-30 09:15] VITALS: BP 186/84
== END 2018-01-30 10:30 | disposition left against medical advice (07) ==
LOC: ER 22:35
DX: M54.2 Cervicalgia (principal); M25.571 Pain in right ankle and joints of right foot; M79.671 Pain in right foot; M79.1 Myalgia; F17.200 Nicotine dependence, unspecified, uncomplicated; F12.10 Cannabis abuse, uncomplicated; I10 Essential (primary) hypertension; V23.4XXA Motorcycle driver injured in collision with car, pick-up truck or van in traffic accident, initial encounter; Y93.89 Activity, other specified; Y92.89 Other specified places as the place of occurrence of the external cause; Y99.8 Other external cause status; Z93.3 Colostomy status; Z79.899 Other long term (current) drug therapy
CPT/HCPCS: 36415; 70450; 72070; 72100; 72125; 73521; 73552; 73562; 73590; 73610; 73630; 80053; 80305; 85025; 96374; 99285; G0482; J1885; J7030

== ENCOUNTER 2018-02-05 06:34 | Emergency (ER) | payer OTHER ==
[~2018-02-05] VITALS: Ht 205.7 cm; Wt 65.3 kg
[2018-02-05] MEDS ORDERED: ACETAMINOPHEN 325MG TABLET PO STA (08:05)
[2018-02-05 08:36] LABS: BASOPHILS % 0.8 % (0.0-2.0); EOSINOPHILS % 1.4 % (0.0-5.0); HEMATOCRIT. 29.3 % (42.0-52.0); HEMOGLOBIN. 9.9 g/dL (14.0-18.0); LYMPHOCYTES % 21.4 % (20.0-50.0); MEAN CORPUSCULAR HEMOGLOBIN 30.3 pg (28.0-32.0); MEAN CORPUSCULAR VOLUME 89.7 fL (80.0-94.0); MEAN PLATELET VOLUME 7.1 fl (7.4-10.4); MONOCYTES % 11.2 % (2.0-8.0); NEUTROPHILS % 65.2 % (40.0-76.0); PLATELET 348 x1000/uL (130-400); RED BLOOD CELL COUNT 3.26 mill/uL (4.7-6.1); RED CELL DISTRIBUTION WIDTH 15.1 % (11.6-14.6)
[2018-02-05 08:43] LABS: CHLORIDE 105 mEq/L (98-107)
[2018-02-05 08:44] LABS: PROTHROMBIN TIME 10.3 sec (9.1-11.1)
[2018-02-05 09:53] LABS: CLARITY URINE CLEAR (CLEAR); COLOR URINE YELLOW (YELLOW); KETONES URINE NEGATIVE (NEGATIVE); LEUKOCYTE ESTERASE URINE NEGATIVE (NEGATIVE); NITRITE URINE NEGATIVE (NEGATIVE); OCCULT BLOOD URINE NEGATIVE (NEGATIVE); PH URINE 6.5 (4.5-8.0); PROTEIN URINE TRACE (NEGATIVE); SPECIFIC GRAVITY URINE 1.017 (1.005-1.030); UROBILINOGEN URINE 0.2 E.U./dL (0.2-1.0)
[2018-02-05 10:08] LABS: *AMPHETAMINES SCREEN URINE NEGATIVE (NEGATIVE); *BARBITURATES SCREEN URINE NEGATIVE (NEGATIVE); *BENZODIAZEPINES SCREEN URINE NEGATIVE (NEGATIVE)
[2018-02-05 10:09] LABS: *COCAINE SCREEN URINE PRESUMTIVE POSITIVE (NEGATIVE); CANNABINOID URINE SCREEN PRESUMTIVE POSITIVE (NEGATIVE); METHADONE URINE SCREEN NEGATIVE (NEGATIVE); OPIATES URINE SCREEN NEGATIVE (NEGATIVE); PHENCYCLIDINE URINE SCREEN NEGATIVE (NEGATIVE)
[2018-02-05 12:52] VITALS: BP 168/79
== END 2018-02-05 13:40 | disposition home or self-care (01) ==
LOC: ER 06:34
DX: Z43.3 Encounter for attention to colostomy (principal); R10.0 Acute abdomen; I10 Essential (primary) hypertension; D72.819 Decreased white blood cell count, unspecified; F14.10 Cocaine abuse, uncomplicated; F12.90 Cannabis use, unspecified, uncomplicated; F17.210 Nicotine dependence, cigarettes, uncomplicated; Z71.6 Tobacco abuse counseling; Z79.899 Other long term (current) drug therapy
CPT/HCPCS: 36415; 80053; 80305; 81003; 83690; 85025; 85610; 99284; 99406; Z7610

== ENCOUNTER 2018-03-04 13:58 | Emergency (ER) | payer OTHER ==
[~2018-03-04] VITALS: Ht 177.8 cm; Wt 68.0 kg
[2018-03-04 15:37] LABS: CHLORIDE 97 mEq/L (98-107)
[2018-03-04 15:38] LABS: BASOPHILS % 0.3 % (0.0-2.0); HEMATOCRIT. 40.9 % (42.0-52.0); HEMOGLOBIN. 13.7 g/dL (14.0-18.0); LYMPHOCYTES % 20.3 % (20.0-50.0); MEAN CORPUSCULAR HEMOGLOBIN 29.8 pg (28.0-32.0); MEAN CORPUSCULAR VOLUME 89.4 fL (80.0-94.0); MEAN PLATELET VOLUME 7.6 fl (7.4-10.4); MONOCYTES % 8.1 % (2.0-8.0); NEUTROPHILS % 71.3 % (40.0-76.0); PLATELET 411 x1000/uL (130-400); RED BLOOD CELL COUNT 4.58 mill/uL (4.7-6.1); RED CELL DISTRIBUTION WIDTH 14.9 % (11.6-14.6)
[2018-03-04 15:41] LABS: INR 1.1; PROTHROMBIN TIME 10.8 sec (9.1-11.1)
[2018-03-04] MEDS ORDERED: FAMOTIDINE 20MG/2ML VIAL IV STA (18:18)
[2018-03-04] MEDS ORDERED: ONDANSETRON HCL 4MG/2ML INJ IV STA (18:18)
[2018-03-04] MEDS ORDERED: SODIUM CHLORIDE 0.9% 1,000 ML IV ONE (18:18)
[2018-03-05 00:19] LABS: CLARITY URINE CLEAR (CLEAR); KETONES URINE TRACE (NEGATIVE); LEUKOCYTE ESTERASE URINE NEGATIVE (NEGATIVE); NITRITE URINE NEGATIVE (NEGATIVE); OCCULT BLOOD URINE NEGATIVE (NEGATIVE); PH URINE 5.5 (4.5-8.0); PROTEIN URINE 2+ (NEGATIVE); SPECIFIC GRAVITY URINE 1.025 (1.005-1.030)
[2018-03-05 00:40] VITALS: BP 112/75
[2018-03-05 01:21] LABS: COLOR URINE YELLOW (YELLOW)
== END 2018-03-05 00:40 | disposition home or self-care (01) ==
LOC: ER 17:09
DX: K29.00 Acute gastritis without bleeding (principal); N28.9 Disorder of kidney and ureter, unspecified; I10 Essential (primary) hypertension; M10.9 Gout, unspecified; M19.90 Unspecified osteoarthritis, unspecified site; G40.909 Epilepsy, unspecified, not intractable, without status epilepticus; F17.200 Nicotine dependence, unspecified, uncomplicated; Z93.3 Colostomy status
CPT/HCPCS: 36415; 71045; 80053; 81003; 83605; 83690; 84484; 85025; 85610; 93005; 96374; 96375; 99285; J2405; J3490; J7030; Z7610

== ENCOUNTER 2018-03-10 14:16 | Emergency (ER) | payer OTHER | END 2018-03-10 15:46 | disposition left against medical advice (07) | LOC: ER 14:16 | DX: Z53.21 Procedure and treatment not carried out due to patient leaving prior to being seen by health care provider (principal) ==

== ENCOUNTER 2018-04-05 08:15 | Emergency (ER) | payer OTHER ==
[~2018-04-05] VITALS: Ht 167.6 cm; Wt 62.0 kg
[2018-04-05 08:20] VITALS: BP 177/96
== END 2018-04-05 14:22 | disposition left against medical advice (07) ==
LOC: ER 09:05
DX: Z53.21 Procedure and treatment not carried out due to patient leaving prior to being seen by health care provider (principal)

== ENCOUNTER 2018-06-14 10:12 | Emergency (ER) | payer OTHER ==
[~2018-06-14] VITALS: Ht 154.9 cm; Wt 61.0 kg
[2018-06-14 12:16] VITALS: BP 122/76
== END 2018-06-14 12:19 | disposition home or self-care (01) ==
LOC: ER 10:12
DX: Z93.3 Colostomy status (principal); I10 Essential (primary) hypertension; J45.909 Unspecified asthma, uncomplicated; F17.200 Nicotine dependence, unspecified, uncomplicated; Z79.899 Other long term (current) drug therapy; Z98.890 Other specified postprocedural states
CPT/HCPCS: 99284

== ENCOUNTER 2018-07-09 02:41 | Inpatient (IN) | payer OTHER ==
[~2018-07-09] VITALS: Ht 175.3 cm; Wt 59.0 kg
[2018-07-09] MEDS ORDERED: SODIUM CHLORIDE 0.9% 1,000 ML IV ONE (03:15)
[2018-07-09] MEDS ORDERED: ACETAMINOPHEN 325MG TABLET PO STA (03:15)
[2018-07-09] MEDS ORDERED: ONDANSETRON HCL 4MG/2ML INJ IV STA (03:15)
[2018-07-09] MEDS ORDERED: ASPIRIN 81MG TABLET PO ONE (03:15)
[2018-07-09] MEDS ORDERED: KETOROLAC 30MG/ML VIAL IV STA (03:15)
[2018-07-09 04:20] LABS: HEMATOCRIT. 34.1 % (42.0-52.0); HEMOGLOBIN. 10.9 g/dL (14.0-18.0); MEAN CORPUSCULAR HEMOGLOBIN 29.1 pg (28.0-32.0); MEAN CORPUSCULAR VOLUME 90.6 fL (80.0-94.0); MEAN PLATELET VOLUME 8.1 fl (7.4-10.4); PLATELET 308 x1000/uL (130-400); RED BLOOD CELL COUNT 3.76 mill/uL (4.7-6.1); RED CELL DISTRIBUTION WIDTH 14.8 % (11.6-14.6)
[2018-07-09 04:26] LABS: CHLORIDE 104 mEq/L (98-107)
[2018-07-09 04:27] LABS: PARTIAL THROMBOPLASTIN TIME 24.5 sec (23.4-31.0); PROTHROMBIN TIME 10.5 sec (9.1-11.1)
[2018-07-09 04:37] LABS: ETHANOL BLOOD < 10 mg/dL
[2018-07-09] MEDS ORDERED: VANCOMYCIN 1 G PREMIX 200 ML IV SCH (05:15)
[2018-07-09] MEDS ORDERED: PIPERACILLIN/TAZ 3.375G PREMIX 50 ML IV ONE (05:15)
[2018-07-09 05:23] LABS: PLATELET ESTIMATE NORMAL
[2018-07-09] MEDS ORDERED: IPRATROPIUM/ALBUTEROL 0.5-3(2.5)MG/3ML NEB HHN PRN (10:30)
[2018-07-09] MEDS ORDERED: CEFTRIAXONE 1 G PREMIX 50 ML IV SCH (10:30)
[2018-07-09 11:48] VITALS: BP 126/69
[2018-07-09 11:53] VITALS: BP 126/69
[2018-07-09] MEDS: AZITHROMYCIN 500 MG TABLET PO SCH (15:16)
[2018-07-09] MEDS: CEFTRIAXONE 1 G PREMIX 50 ML IV SCH (15:16)
[2018-07-09 16:26] VITALS: BP 131/67
[2018-07-09] MEDS ORDERED: POTASSIUM CHLORIDE 20MEQ TABLET SR PO SCH (17:30)
[2018-07-09] MEDS: NICOTINE 7MG PATCH TD SCH (18:05)
[2018-07-09 20:00] VITALS: BP 150/77
[2018-07-09] MEDS: GUAIFENESIN 600MG ER TABLET PO SCH (20:09)
[2018-07-09] MEDS: ACETAMINOPHEN 325MG TABLET PO PRN (20:09)
[2018-07-09 21:05] LABS: CLARITY URINE CLEAR (CLEAR); COLOR URINE YELLOW (YELLOW); KETONES URINE NEGATIVE (NEGATIVE); LEUKOCYTE ESTERASE URINE 1+ (NEGATIVE); NITRITE URINE NEGATIVE (NEGATIVE); OCCULT BLOOD URINE NEGATIVE (NEGATIVE); PROTEIN URINE 1+ (NEGATIVE); SPECIFIC GRAVITY URINE 1.022 (1.005-1.030)
[2018-07-09 21:27] LABS: *AMPHETAMINES SCREEN URINE NEGATIVE (NEGATIVE); *BARBITURATES SCREEN URINE NEGATIVE (NEGATIVE); *BENZODIAZEPINES SCREEN URINE NEGATIVE (NEGATIVE); *COCAINE SCREEN URINE PRESUMTIVE POSITIVE (NEGATIVE); METHADONE URINE SCREEN NEGATIVE (NEGATIVE); OPIATES URINE SCREEN NEGATIVE (NEGATIVE); PHENCYCLIDINE URINE SCREEN NEGATIVE (NEGATIVE)
[2018-07-09 21:28] LABS: CANNABINOID URINE SCREEN PRESUMTIVE POSITIVE (NEGATIVE)
[2018-07-09] MEDS: IPRATROPIUM/ALBUTEROL 0.5-3(2.5)MG/3ML NEB HHN SCH (21:48)
[2018-07-09] MEDS: ONDANSETRON HCL 4MG/2ML INJ IV PRN (23:45)
[2018-07-10] MEDS: LORAZEPAM 2MG/ML CPJ IV PRN ×4 (00:37→16:09)
[2018-07-10 00:55] VITALS: BP 159/72
[2018-07-10] MEDS: IPRATROPIUM/ALBUTEROL 0.5-3(2.5)MG/3ML NEB HHN SCH ×3 (03:43→20:43)
[2018-07-10 04:00] VITALS: BP 156/96
[2018-07-10 08:00] VITALS: BP 192/98
[2018-07-10] MEDS: CEFTRIAXONE 1 G PREMIX 50 ML IV SCH (08:03)
[2018-07-10] MEDS: GUAIFENESIN 600MG ER TABLET PO SCH ×3 (09:00→20:41)
[2018-07-10] MEDS: AZITHROMYCIN 500 MG TABLET PO SCH ×2 (09:00→16:08)
[2018-07-10] MEDS: HYDROCODONE/ACETAMINOPHEN 5/325MG TABLET PO PRN (09:50)
[2018-07-10] MEDS: AMLODIPINE 2.5MG TABLET PO SCH ×3 (10:00→18:40)
[2018-07-10] MEDS: CARVEDILOL 6.25 MG TABLET PO SCH ×3 (10:00→18:40)
[2018-07-10 10:09] LABS: HEMATOCRIT. 34.5 % (42.0-52.0); HEMOGLOBIN. 10.7 g/dL (14.0-18.0); MEAN CORPUSCULAR HEMOGLOBIN 28.5 pg (28.0-32.0); MEAN CORPUSCULAR VOLUME 91.5 fL (80.0-94.0); MEAN PLATELET VOLUME 8.4 fl (7.4-10.4); PLATELET 315 x1000/uL (130-400); RED BLOOD CELL COUNT 3.77 mill/uL (4.7-6.1); RED CELL DISTRIBUTION WIDTH 15.2 % (11.6-14.6)
[2018-07-10 10:20] LABS: CHLORIDE 104 mEq/L (98-107)
[2018-07-10] MEDS: ONDANSETRON HCL 4MG/2ML INJ IV PRN (12:22)
[2018-07-10] MEDS: HYDRALAZINE 20MG/ML VIAL IV PRN ×2 (12:48→18:19)
[2018-07-10 14:09] VITALS: BP 171/92
[2018-07-10] MEDS: NICOTINE 7MG PATCH TD SCH (16:02)
[2018-07-10 17:06] LABS: PLATELET ESTIMATE NORMAL
[2018-07-10 18:30] VITALS: BP 188/104
[2018-07-10 20:00] VITALS: BP 145/82
[2018-07-10] MEDS: CARVEDILOL 12.5MG TABLET PO SCH (20:41)
[2018-07-10] MEDS: AMLODIPINE 5MG TABLET PO SCH (20:41)
[2018-07-10] MEDS: METRONIDAZOLE 500MG TABLET PO SCH (20:42)
[2018-07-11] VITALS: BP 136/80
[2018-07-11] MEDS: IPRATROPIUM/ALBUTEROL 0.5-3(2.5)MG/3ML NEB HHN SCH ×4 (00:59→21:47)
[2018-07-11] MEDS: LORAZEPAM 2MG/ML CPJ IV PRN (01:28)
[2018-07-11 04:00] VITALS: BP 100/59
[2018-07-11 08:00] VITALS: BP 162/92
[2018-07-11] MEDS: CARVEDILOL 12.5MG TABLET PO SCH (08:52)
[2018-07-11] MEDS: METRONIDAZOLE 500MG TABLET PO SCH ×2 (08:52→21:04)
[2018-07-11] MEDS: AMLODIPINE 5MG TABLET PO SCH ×2 (08:53→21:03)
[2018-07-11] MEDS: NICOTINE 7MG PATCH TD SCH (08:53)
[2018-07-11] MEDS: HYDROCODONE/ACETAMINOPHEN 5/325MG TABLET PO PRN ×2 (08:55→18:12)
[2018-07-11] MEDS: GUAIFENESIN 600MG ER TABLET PO SCH ×2 (08:59→21:04)
[2018-07-11] MEDS: CEFTRIAXONE 1 G PREMIX 50 ML IV SCH (09:03)
[2018-07-11 11:55] LABS: HEMATOCRIT. 36.3 % (42.0-52.0); HEMOGLOBIN. 11.5 g/dL (14.0-18.0); MEAN CORPUSCULAR HEMOGLOBIN 28.7 pg (28.0-32.0); MEAN CORPUSCULAR VOLUME 90.3 fL (80.0-94.0); MEAN PLATELET VOLUME 8.8 fl (7.4-10.4); PLATELET 374 x1000/uL (130-400); RED BLOOD CELL COUNT 4.01 mill/uL (4.7-6.1); RED CELL DISTRIBUTION WIDTH 14.6 % (11.6-14.6)
[2018-07-11 12:00] VITALS: BP 167/94
[2018-07-11 12:32] LABS: CHLORIDE 102 mEq/L (98-107)
[2018-07-11 12:53] LABS: PLATELET ESTIMATE NORMAL
[2018-07-11] MEDS: LOSARTAN POTASSIUM 50 MG TABLET PO SCH (15:00)
[2018-07-11 16:00] VITALS: BP 106/54
[2018-07-11] MEDS: SODIUM CHLORIDE 0.45% 1,000 ML IV SCH (16:00)
[2018-07-11] MEDS: ONDANSETRON HCL 4MG/2ML INJ IV PRN (18:00)
[2018-07-11 20:00] VITALS: BP 180/85
[2018-07-11] MEDS: METOCLOPRAMIDE HCL 10MG/2ML VIAL IV PRN (21:03)
[2018-07-11] MEDS: CARVEDILOL 25MG TABLET PO SCH (21:04)
[2018-07-12] VITALS: BP 106/60
[2018-07-12] MEDS: HYDROCODONE/ACETAMINOPHEN 5/325MG TABLET PO PRN ×4 (00:14→22:48)
[2018-07-12] MEDS: IPRATROPIUM/ALBUTEROL 0.5-3(2.5)MG/3ML NEB HHN SCH ×2 (02:13→20:55)
[2018-07-12 04:00] VITALS: BP 121/76
[2018-07-12] MEDS: METOCLOPRAMIDE HCL 10MG/2ML VIAL IV PRN ×2 (05:44→15:16)
[2018-07-12] MEDS: SODIUM CHLORIDE 0.45% 1,000 ML IV SCH ×2 (05:44→19:54)
[2018-07-12] MEDS: ACETAMINOPHEN 325MG TABLET PO PRN ×2 (05:51→19:55)
[2018-07-12 07:26] LABS: BASOPHILS % 0.6 % (0.0-2.0); EOSINOPHILS % 0.1 % (0.0-5.0); HEMATOCRIT. 39.9 % (42.0-52.0); LYMPHOCYTES % 8.3 % (20.0-50.0); MEAN CORPUSCULAR HEMOGLOBIN 29.4 pg (28.0-32.0); MEAN CORPUSCULAR VOLUME 90.3 fL (80.0-94.0); MEAN PLATELET VOLUME 8.1 fl (7.4-10.4); MONOCYTES % 6.1 % (2.0-8.0); NEUTROPHILS % 84.9 % (40.0-76.0); PLATELET 427 x1000/uL (130-400); RED BLOOD CELL COUNT 4.42 mill/uL (4.7-6.1); RED CELL DISTRIBUTION WIDTH 14.6 % (11.6-14.6)
[2018-07-12 07:35] LABS: CHLORIDE 101 mEq/L (98-107)
[2018-07-12 08:00] VITALS: BP 145/78
[2018-07-12] MEDS: METRONIDAZOLE 500MG TABLET PO SCH ×2 (08:32→20:04)
[2018-07-12] MEDS: GUAIFENESIN 600MG ER TABLET PO SCH ×2 (08:32→20:04)
[2018-07-12] MEDS: LOSARTAN POTASSIUM 50 MG TABLET PO SCH (08:32)
[2018-07-12] MEDS: AZITHROMYCIN 500 MG TABLET PO SCH (08:32)
[2018-07-12] MEDS: AMLODIPINE 5MG TABLET PO SCH ×2 (08:32→20:04)
[2018-07-12] MEDS: CARVEDILOL 25MG TABLET PO SCH ×2 (08:33→20:04)
[2018-07-12] MEDS: CEFTRIAXONE 1 G PREMIX 50 ML IV SCH (08:33)
[2018-07-12] MEDS: NICOTINE 7MG PATCH TD SCH (08:34)
[2018-07-12 12:00] VITALS: BP 131/65
[2018-07-12] MEDS ORDERED: IPRATROPIUM BROMIDE (0.02%) 0.5MG/2.5ML NEB ONE (14:00)
[2018-07-12 16:00] VITALS: BP 153/89
[2018-07-12 20:00] VITALS: BP 188/98
[2018-07-12] MEDS: ONDANSETRON HCL 4MG/2ML INJ IV PRN (21:57)
[2018-07-13] VITALS (7 sets, daily range): BP systolic 111–205; BP diastolic 50–99
[2018-07-13] MEDS: METOCLOPRAMIDE HCL 10MG/2ML VIAL IV PRN ×2 (02:01→08:38)
[2018-07-13] MEDS: HYDRALAZINE 20MG/ML VIAL IV PRN (05:15)
[2018-07-13] MEDS: HYDROCODONE/ACETAMINOPHEN 5/325MG TABLET PO PRN ×2 (05:16→20:30)
[2018-07-13] MEDS: IPRATROPIUM/ALBUTEROL 0.5-3(2.5)MG/3ML NEB HHN SCH ×4 (08:00→21:08)
[2018-07-13] MEDS: NICOTINE 7MG PATCH TD SCH (08:37)
[2018-07-13] MEDS: METRONIDAZOLE 500MG TABLET PO SCH ×2 (08:38→20:29)
[2018-07-13] MEDS: GUAIFENESIN 600MG ER TABLET PO SCH ×2 (08:38→20:30)
[2018-07-13] MEDS: CARVEDILOL 25MG TABLET PO SCH ×2 (08:38→20:31)
[2018-07-13] MEDS: AMLODIPINE 5MG TABLET PO SCH ×2 (08:38→20:31)
[2018-07-13] MEDS: CEFTRIAXONE 1 G PREMIX 50 ML IV SCH (08:38)
[2018-07-13] MEDS: AZITHROMYCIN 500 MG TABLET PO SCH (08:38)
[2018-07-13] MEDS: LOSARTAN POTASSIUM 50 MG TABLET PO SCH ×2 (08:39→20:30)
[2018-07-13] MEDS: SODIUM CHLORIDE 0.45% 1,000 ML IV SCH ×2 (09:28→20:50)
[2018-07-14] VITALS: BP 96/46
[2018-07-14] MEDS: METOCLOPRAMIDE HCL 10MG/2ML VIAL IV PRN (01:28)
[2018-07-14] MEDS: HYDROCODONE/ACETAMINOPHEN 5/325MG TABLET PO PRN ×3 (01:32→22:52)
[2018-07-14 04:00] VITALS: BP 104/50
[2018-07-14] MEDS: IPRATROPIUM/ALBUTEROL 0.5-3(2.5)MG/3ML NEB HHN SCH ×4 (07:34→20:16)
[2018-07-14 08:00] VITALS: BP 126/62
[2018-07-14] MEDS: NICOTINE 7MG PATCH TD SCH (09:00)
[2018-07-14] MEDS: METRONIDAZOLE 500MG TABLET PO SCH ×2 (09:12→21:15)
[2018-07-14] MEDS: AZITHROMYCIN 500 MG TABLET PO SCH (09:12)
[2018-07-14] MEDS: LOSARTAN POTASSIUM 50 MG TABLET PO SCH ×2 (09:13→21:15)
[2018-07-14] MEDS: AMLODIPINE 5MG TABLET PO SCH ×2 (09:13→21:16)
[2018-07-14] MEDS: CARVEDILOL 25MG TABLET PO SCH ×2 (09:13→21:16)
[2018-07-14] MEDS: CEFTRIAXONE 1 G PREMIX 50 ML IV SCH (09:14)
[2018-07-14] MEDS: GUAIFENESIN 600MG ER TABLET PO SCH ×2 (09:14→21:15)
[2018-07-14] MEDS: SODIUM CHLORIDE 0.45% 1,000 ML IV SCH (10:10)
[2018-07-14 12:00] VITALS: BP 125/69
[2018-07-14 16:00] VITALS: BP 129/32
[2018-07-14 20:00] VITALS: BP 106/52
[2018-07-14] MEDS ORDERED: GUAIFENESIN 600MG ER TABLET PO SCH (21:00)
[2018-07-14] MEDS: ACETAMINOPHEN 325MG TABLET PO PRN (21:15)
[2018-07-15] VITALS: BP 109/64
[2018-07-15] MEDS: IPRATROPIUM/ALBUTEROL 0.5-3(2.5)MG/3ML NEB HHN SCH ×2 (01:05→09:12)
[2018-07-15 04:00] VITALS: BP 126/68
[2018-07-15] MEDS: NICOTINE 7MG PATCH TD SCH (09:00)
[2018-07-15] MEDS: CEFTRIAXONE 1 G PREMIX 50 ML IV SCH (09:06)
[2018-07-15] MEDS: METRONIDAZOLE 500MG TABLET PO SCH (09:07)
[2018-07-15] MEDS: GUAIFENESIN 600MG ER TABLET PO SCH (09:07)
[2018-07-15] MEDS: LOSARTAN POTASSIUM 50 MG TABLET PO SCH (09:07)
[2018-07-15] MEDS: AMLODIPINE 5MG TABLET PO SCH (09:07)
[2018-07-15] MEDS: AZITHROMYCIN 500 MG TABLET PO SCH (09:07)
[2018-07-15] MEDS: CARVEDILOL 25MG TABLET PO SCH (09:08)
[2018-07-15 11:02] VITALS: BP 119/57
== END 2018-07-15 14:01 | disposition home or self-care (01) | DRG 720 ==
LOC: ER 02:41 → 7WST 05:18 → EDBEDREQ 05:28 → EDBEDREQTM 05:28 → ENRESERV 10:37
PROVIDERS: ADMIT Internal Medicine; ATTEND Internal Medicine
DX: A41.9 Sepsis, unspecified organism (principal); J96.00 Acute respiratory failure, unspecified whether with hypoxia or hypercapnia; N17.0 Acute kidney failure with tubular necrosis; J18.1 Lobar pneumonia, unspecified organism; I42.9 Cardiomyopathy, unspecified; I13.0 Hypertensive heart and chronic kidney disease with heart failure and stage 1 through stage 4 chronic kidney disease, or unspecified chronic kidney disease; I50.22 Chronic systolic (congestive) heart failure; K57.92 Diverticulitis of intestine, part unspecified, without perforation or abscess without bleeding; T40.5X1A Poisoning by cocaine, accidental (unintentional), initial encounter; J68.0 Bronchitis and pneumonitis due to chemicals, gases, fumes and vapors; K80.20 Calculus of gallbladder without cholecystitis without obstruction; D64.9 Anemia, unspecified; E87.6 Hypokalemia; R07.89 Other chest pain; F12.10 Cannabis abuse, uncomplicated; F14.10 Cocaine abuse, uncomplicated; F17.210 Nicotine dependence, cigarettes, uncomplicated; F32.9 Major depressive disorder, single episode, unspecified; F41.9 Anxiety disorder, unspecified; G40.909 Epilepsy, unspecified, not intractable, without status epilepticus; J44.0 Chronic obstructive pulmonary disease with (acute) lower respiratory infection; M19.90 Unspecified osteoarthritis, unspecified site; N18.9 Chronic kidney disease, unspecified; Z59.0 Homelessness; Z93.3 Colostomy status; Z79.899 Other long term (current) drug therapy; Z71.6 Tobacco abuse counseling; Y92.89 Other specified places as the place of occurrence of the external cause
CPT/HCPCS: 36415; 71045; 74018; 74176; 80048; 80061; 80305; 82140; 83605; 83880; 84443; 84484; 87070; 87804; 93005; 93306; 93970; 97112; 97116; 97162; 97530; C1893; G0482; J0360; J0696; J1885; J2060; J2405; J2543; J2765; J3370; J7030; J7620

== ENCOUNTER 2018-08-25 23:59 | Emergency (ER) | payer OTHER ==
[~2018-08-25] VITALS: Ht 175.3 cm; Wt 61.5 kg
[2018-08-26] MEDS ORDERED: KETOROLAC 30MG/ML VIAL IV STA (00:53)
[2018-08-26 01:15] LABS: BASOPHILS % 0.6 % (0.0-2.0); EOSINOPHILS % 1.2 % (0.0-5.0); HEMATOCRIT. 34.1 % (42.0-52.0); HEMOGLOBIN. 11.2 g/dL (14.0-18.0); LYMPHOCYTES % 16.1 % (20.0-50.0); MEAN CORPUSCULAR HEMOGLOBIN 29.8 pg (28.0-32.0); MEAN CORPUSCULAR VOLUME 90.9 fL (80.0-94.0); MEAN PLATELET VOLUME 7.3 fl (7.4-10.4); MONOCYTES % 6.8 % (2.0-8.0); NEUTROPHILS % 75.3 % (40.0-76.0); PLATELET 402 x1000/uL (130-400); RED BLOOD CELL COUNT 3.75 mill/uL (4.7-6.1)
[2018-08-26 01:40] LABS: CHLORIDE 106 mEq/L (98-107)
[2018-08-26 10:00] VITALS: BP 130/65
== END 2018-08-26 10:44 | disposition home or self-care (01) ==
LOC: ER 23:59
DX: M94.0 Chondrocostal junction syndrome [Tietze] (principal); I10 Essential (primary) hypertension; F17.200 Nicotine dependence, unspecified, uncomplicated; F12.10 Cannabis abuse, uncomplicated; Z88.8 Allergy status to other drugs, medicaments and biological substances; Z79.899 Other long term (current) drug therapy; Z87.19 Personal history of other diseases of the digestive system
CPT/HCPCS: 36415; 71045; 80053; 84484; 85025; 85379; 93005; 96374; 99284; J1885

== ENCOUNTER 2018-09-12 23:59 | Emergency (ER) | payer OTHER ==
[~2018-09-12] VITALS: Ht 175.3 cm; Wt 62.0 kg
[2018-09-13] MEDS ORDERED: KETOROLAC 60MG/2ML VIAL IM STA (01:28)
[2018-09-13 02:11] LABS: HEMATOCRIT. 34.6 % (42.0-52.0); HEMOGLOBIN. 11.3 g/dL (14.0-18.0); RED BLOOD CELL COUNT 3.84 mill/uL (4.7-6.1)
[2018-09-13 02:14] LABS: CHLORIDE 106 mEq/L (98-107)
[2018-09-13 02:18] LABS: BASOPHILS % 1.2 % (0.0-2.0); EOSINOPHILS % 2.2 % (0.0-5.0); ETHANOL BLOOD < 10 mg/dL; LYMPHOCYTES % 25.4 % (20.0-50.0); MEAN CORPUSCULAR HEMOGLOBIN 29.4 pg (28.0-32.0); MEAN PLATELET VOLUME 7.7 fl (7.4-10.4); MONOCYTES % 10.6 % (2.0-8.0); NEUTROPHILS % 60.6 % (40.0-76.0); PLATELET 308 x1000/uL (130-400); RED CELL DISTRIBUTION WIDTH 14.3 % (11.6-14.6)
[2018-09-13 08:10] VITALS: BP 177/67
== END 2018-09-13 08:29 | disposition home or self-care (01) ==
LOC: ER 23:59
DX: E87.6 Hypokalemia (principal); M79.10 Myalgia, unspecified site; I10 Essential (primary) hypertension; Z93.3 Colostomy status; Z88.8 Allergy status to other drugs, medicaments and biological substances; Z87.442 Personal history of urinary calculi; Z59.0 Homelessness
CPT/HCPCS: 36415; 80053; 80320; 85025; 96372; 99283; J1885; G0480

== ENCOUNTER 2018-09-22 02:17 | Emergency (ER) | payer OTHER ==
[~2018-09-22] VITALS: Ht 175.3 cm; Wt 64.4 kg
[2018-09-22] MEDS ORDERED: MAGNESIUM/ALUMINUM HYDROXIDE/SIMETHICONE 30ML UDC PO STA (06:35)
[2018-09-22] MEDS ORDERED: FAMOTIDINE 20MG TABLET PO ONE (06:45)
[2018-09-22 07:12] LABS: BASOPHILS % 1.6 % (0.0-2.0); EOSINOPHILS % 5.3 % (0.0-5.0); HEMATOCRIT. 31.5 % (42.0-52.0); HEMOGLOBIN. 10.4 g/dL (14.0-18.0); LYMPHOCYTES % 20.9 % (20.0-50.0); MEAN CORPUSCULAR VOLUME 91.1 fL (80.0-94.0); MEAN PLATELET VOLUME 7.4 fl (7.4-10.4); MONOCYTES % 11.1 % (2.0-8.0); NEUTROPHILS % 61.1 % (40.0-76.0); PLATELET 340 x1000/uL (130-400); RED BLOOD CELL COUNT 3.46 mill/uL (4.7-6.1); RED CELL DISTRIBUTION WIDTH 14.7 % (11.6-14.6)
[2018-09-22 07:13] LABS: PROTHROMBIN TIME 10.1 sec (9.1-11.1)
[2018-09-22 07:18] LABS: CHLORIDE 109 mEq/L (98-107)
[2018-09-22 09:36] VITALS: BP 160/78
== END 2018-09-22 09:38 | disposition home or self-care (01) ==
LOC: ER 02:17
DX: K92.1 Melena (principal); Z93.3 Colostomy status; I10 Essential (primary) hypertension; G40.909 Epilepsy, unspecified, not intractable, without status epilepticus
CPT/HCPCS: 36415; 93005; 99284

== ENCOUNTER 2018-09-24 02:32 | Emergency (ER) | payer OTHER ==
[~2018-09-24] VITALS: Ht 175.3 cm; Wt 61.0 kg
[2018-09-24] MEDS ORDERED: ACETAMINOPHEN 325MG TABLET PO STA (07:13)
[2018-09-24 07:30] LABS: BASOPHILS % 1.1 % (0.0-2.0); EOSINOPHILS % 3.7 % (0.0-5.0); HEMATOCRIT. 29.2 % (42.0-52.0); HEMOGLOBIN. 9.6 g/dL (14.0-18.0); LYMPHOCYTES % 25.9 % (20.0-50.0); MEAN CORPUSCULAR HEMOGLOBIN 29.9 pg (28.0-32.0); MEAN CORPUSCULAR VOLUME 90.9 fL (80.0-94.0); MEAN PLATELET VOLUME 7.1 fl (7.4-10.4); MONOCYTES % 9.9 % (2.0-8.0); NEUTROPHILS % 59.4 % (40.0-76.0); PLATELET 332 x1000/uL (130-400); RED BLOOD CELL COUNT 3.21 mill/uL (4.7-6.1); RED CELL DISTRIBUTION WIDTH 14.6 % (11.6-14.6)
[2018-09-24 07:37] LABS: CHLORIDE 107 mEq/L (98-107)
[2018-09-24 07:41] LABS: ETHANOL BLOOD < 10 mg/dL
[2018-09-24] MEDS ORDERED: SODIUM CHLORIDE 0.9% 1,000 ML IV ONE (09:04)
[2018-09-24] MEDS ORDERED: METOCLOPRAMIDE HCL 10MG/2ML VIAL IV ONE (09:15)
[2018-09-24 09:40] VITALS: BP 156/84
== END 2018-09-24 10:40 | disposition home or self-care (01) ==
LOC: ER 02:32
DX: Z43.3 Encounter for attention to colostomy (principal); K92.1 Melena; R10.11 Right upper quadrant pain; I10 Essential (primary) hypertension; D64.9 Anemia, unspecified
CPT/HCPCS: 36415; 80048; 80320; 85025; 99283; J7030; G0480

== ENCOUNTER 2018-10-20 02:28 | Emergency (ER) | payer OTHER ==
[~2018-10-20] VITALS: Ht 175.3 cm; Wt 62.0 kg
[2018-10-20 05:25] VITALS: BP 144/81
== END 2018-10-20 05:25 | disposition home or self-care (01) ==
LOC: ER 02:28
DX: Z43.3 Encounter for attention to colostomy (principal); Z79.899 Other long term (current) drug therapy; F17.200 Nicotine dependence, unspecified, uncomplicated; Z88.8 Allergy status to other drugs, medicaments and biological substances
CPT/HCPCS: 99281; 99282

== ENCOUNTER 2018-10-24 11:17 | Emergency (ER) | payer OTHER | END 2018-10-24 12:51 | disposition left against medical advice (07) | LOC: ER 11:17 | DX: M79.18 Myalgia, other site (principal); Z53.21 Procedure and treatment not carried out due to patient leaving prior to being seen by health care provider ==

== ENCOUNTER 2018-12-08 03:19 | Emergency (ER) | payer OTHER ==
[~2018-12-08] VITALS: Ht 175.3 cm; Wt 62.0 kg
[~2018-12-08 03:19] MED LIST changes: -LOSA50TA20 PO; +LOSA50TA41 PO
[2018-12-08] MEDS ORDERED: ACETAMINOPHEN 325MG TABLET PO ONE (04:45)
[2018-12-08 05:02] LABS: HEMATOCRIT. 29.9 % (42.0-52.0); MEAN CORPUSCULAR HEMOGLOBIN 29.7 pg (28.0-32.0); MEAN CORPUSCULAR VOLUME 88.8 fL (80.0-94.0); RED BLOOD CELL COUNT 3.37 mill/uL (4.7-6.1); RED CELL DISTRIBUTION WIDTH 15.8 % (11.6-14.6)
[2018-12-08 05:10] LABS: CHLORIDE 105 mEq/L (98-107)
[2018-12-08 05:14] LABS: ETHANOL BLOOD < 10 mg/dL
[2018-12-08 07:02] LABS: PLATELET ESTIMATE NORMAL
[2018-12-08 08:15] LABS: CLARITY URINE CLEAR (CLEAR); COLOR URINE YELLOW (YELLOW); KETONES URINE NEGATIVE (NEGATIVE); LEUKOCYTE ESTERASE URINE NEGATIVE (NEGATIVE); NITRITE URINE NEGATIVE (NEGATIVE); OCCULT BLOOD URINE NEGATIVE (NEGATIVE); PH URINE 6.5 (4.5-8.0); PROTEIN URINE NEGATIVE (NEGATIVE); SPECIFIC GRAVITY URINE 1.009 (1.005-1.030); UROBILINOGEN URINE 0.2 E.U./dL (0.2-1.0)
[2018-12-08 08:30] LABS: *AMPHETAMINES SCREEN URINE NEGATIVE (NEGATIVE); *BARBITURATES SCREEN URINE NEGATIVE (NEGATIVE); *BENZODIAZEPINES SCREEN URINE NEGATIVE (NEGATIVE); *COCAINE SCREEN URINE PRESUMTIVE POSITIVE (NEGATIVE); CANNABINOID URINE SCREEN PRESUMTIVE POSITIVE (NEGATIVE); METHADONE URINE SCREEN NEGATIVE (NEGATIVE); OPIATES URINE SCREEN NEGATIVE (NEGATIVE); PHENCYCLIDINE URINE SCREEN NEGATIVE (NEGATIVE)
[2018-12-08 12:23] VITALS: BP 140/82
== END 2018-12-08 12:25 | disposition home or self-care (01) ==
LOC: ER 03:19
DX: G89.29 Other chronic pain (principal); M79.10 Myalgia, unspecified site; M21.619 Bunion of unspecified foot; F12.10 Cannabis abuse, uncomplicated; F17.200 Nicotine dependence, unspecified, uncomplicated; Z87.19 Personal history of other diseases of the digestive system; Z93.3 Colostomy status; Z59.0 Homelessness; Z79.899 Other long term (current) drug therapy; Z88.8 Allergy status to other drugs, medicaments and biological substances
CPT/HCPCS: 36415; 80305; 80320; 99283; G0480

== ENCOUNTER 2018-12-22 03:04 | Emergency (ER) | payer OTHER ==
[~2018-12-22] VITALS: Ht 177.8 cm; Wt 66.7 kg
[2018-12-22 06:20] LABS: BASOPHILS % 1.6 % (0.0-2.0); EOSINOPHILS % 1.9 % (0.0-5.0); HEMOGLOBIN. 9.9 g/dL (14.0-18.0); MEAN CORPUSCULAR HEMOGLOBIN 28.9 pg (28.0-32.0); MEAN CORPUSCULAR VOLUME 87.9 fL (80.0-94.0); MONOCYTES % 8.1 % (2.0-8.0); NEUTROPHILS % 67.4 % (40.0-76.0); PLATELET 311 x1000/uL (130-400); RED BLOOD CELL COUNT 3.41 mill/uL (4.7-6.1); RED CELL DISTRIBUTION WIDTH 15.3 % (11.6-14.6)
[2018-12-22 06:25] LABS: CHLORIDE 106 mEq/L (98-107)
[2018-12-22 06:26] LABS: PROTHROMBIN TIME 10.3 sec (9.6-11.0)
[2018-12-22] MEDS ORDERED: ACETAMINOPHEN 325MG TABLET PO ONE (07:15)
[2018-12-22 07:36] LABS: CLARITY URINE CLEAR (CLEAR); COLOR URINE YELLOW (YELLOW); KETONES URINE NEGATIVE (NEGATIVE); LEUKOCYTE ESTERASE URINE NEGATIVE (NEGATIVE); NITRITE URINE NEGATIVE (NEGATIVE); OCCULT BLOOD URINE NEGATIVE (NEGATIVE); PH URINE 5.5 (4.5-8.0); PROTEIN URINE 1+ (NEGATIVE); SPECIFIC GRAVITY URINE 1.029 (1.005-1.030); UROBILINOGEN URINE 0.2 E.U./dL (0.2-1.0)
[2018-12-22 12:04] VITALS: BP 135/78
== END 2018-12-22 12:06 | disposition home or self-care (01) ==
LOC: ER 03:04
DX: R45.851 Suicidal ideations (principal); F32.3 Major depressive disorder, single episode, severe with psychotic features; R10.0 Acute abdomen; R11.2 Nausea with vomiting, unspecified; Z71.6 Tobacco abuse counseling; F12.90 Cannabis use, unspecified, uncomplicated; I10 Essential (primary) hypertension; F12.10 Cannabis abuse, uncomplicated; D64.9 Anemia, unspecified; E86.0 Dehydration; F17.290 Nicotine dependence, other tobacco product, uncomplicated; Z79.899 Other long term (current) drug therapy; Z59.0 Homelessness; Z93.3 Colostomy status; Z87.19 Personal history of other diseases of the digestive system
CPT/HCPCS: 36415; 99284; 99406

== ENCOUNTER 2019-03-10 01:09 | Inpatient (IN) | payer OTHER ==
[~2019-03-10] VITALS: Ht 170.2 cm; Wt 48.8 kg
[2019-03-10 03:21] LABS: BASOPHILS % 0.8 % (0.0-2.0); EOSINOPHILS % 2.9 % (0.0-5.0); HEMATOCRIT. 27.4 % (42.0-52.0); HEMOGLOBIN. 9.2 g/dL (14.0-18.0); LYMPHOCYTES % 25.9 % (20.0-50.0); MEAN CORPUSCULAR HEMOGLOBIN 29.7 pg (28.0-32.0); MEAN CORPUSCULAR VOLUME 88.7 fL (80.0-94.0); MEAN PLATELET VOLUME 7.3 fl (7.4-10.4); MONOCYTES % 9.1 % (2.0-8.0); NEUTROPHILS % 61.3 % (40.0-76.0); PLATELET 326 x1000/uL (130-400); RED BLOOD CELL COUNT 3.09 mill/uL (4.7-6.1); RED CELL DISTRIBUTION WIDTH 15.8 % (11.6-14.6)
[2019-03-10 03:28] LABS: CHLORIDE 108 mEq/L (98-107)
[2019-03-10] MEDS ORDERED: IPRATROPIUM/ALBUTEROL 0.5-3(2.5)MG/3ML NEB HHN PRN (11:15)
[2019-03-10] MEDS ORDERED: GUAIFENESIN 200MG/10ML SUGAR FREE UDC PO PRN (11:15)
[2019-03-10] MEDS ORDERED: ACETAMINOPHEN 325MG TABLET PO PRN (11:15)
[2019-03-10] MEDS ORDERED: DIPHENHYDRAMINE 50MG/ML VIAL IV PRN (11:15)
[2019-03-10] MEDS ORDERED: DOCUSATE SODIUM 100MG CAPSULE PO PRN (11:15)
[2019-03-10] MEDS ORDERED: MAGNESIUM/ALUMINUM HYDROXIDE/SIMETHICONE 30ML UDC PO PRN (11:15)
[2019-03-10] MEDS: SODIUM CHLORIDE 0.9% 1,000 ML IV SCH (11:21)
[2019-03-10 11:41] LABS: PHOSPHORUS 3.8 mg/dL (2.5-4.9)
[2019-03-10 14:00] VITALS: BP 160/76
[2019-03-10] MEDS ORDERED: CLONAZEPAM 0.5MG TABLET PO PRN (15:30)
[2019-03-10] MEDS ORDERED: PNEUMOCOCCAL 23-VAL P-SAC VAC 0.5 ML IM ONE (15:30)
[2019-03-10 16:00] VITALS: BP 160/76
[2019-03-10 16:01] LABS: HEMATOCRIT 30.4 % (42.0-52.0); HEMOGLOBIN 9.8 g/dL (14.0-18.0)
[2019-03-10 16:20] LABS: TOTAL IRON BINDING CAPACITY 359 ug/dL (250-450)
[2019-03-10 16:23] LABS: CREATINE KINASE MB FRACTION 3.5 ng/mL (0.5-3.6)
[2019-03-10 16:34] LABS: FOLIC ACID (FOLATE) SERUM 10.5 ng/mL (>5.38)
[2019-03-10 20:00] VITALS: BP 176/100
[2019-03-10] MEDS: CLONIDINE 0.1MG TABLET PO PRN (20:44)
[2019-03-10] MEDS: AMLODIPINE 5MG TABLET PO SCH (20:44)
[2019-03-10] MEDS: PANTOPRAZOLE 40MG DR TABLET PO SCH (20:45)
[2019-03-10] MEDS: HYDRALAZINE HCL 25MG TABLET PO SCH (20:45)
[2019-03-10] MEDS: HYDROCODONE/ACETAMINOPHEN 5/325MG TABLET PO PRN (20:50)
[2019-03-11] VITALS: BP 120/52
[2019-03-11 00:06] LABS: HEMATOCRIT 27.6 % (42.0-52.0); HEMOGLOBIN 9.2 g/dL (14.0-18.0)
[2019-03-11 00:21] LABS: CREATINE KINASE MB FRACTION 2.6 ng/mL (0.5-3.6)
[2019-03-11 02:25] LABS: CLARITY URINE CLEAR (CLEAR); COLOR URINE YELLOW (YELLOW); KETONES URINE NEGATIVE (NEGATIVE); LEUKOCYTE ESTERASE URINE NEGATIVE (NEGATIVE); NITRITE URINE NEGATIVE (NEGATIVE); OCCULT BLOOD URINE NEGATIVE (NEGATIVE); PH URINE 5.5 (4.5-8.0); PROTEIN URINE NEGATIVE (NEGATIVE); SPECIFIC GRAVITY URINE 1.007 (1.005-1.030); UROBILINOGEN URINE 0.2 E.U./dL (0.2-1.0)
[2019-03-11 02:50] LABS: *AMPHETAMINES SCREEN URINE NEGATIVE (NEGATIVE); *BARBITURATES SCREEN URINE NEGATIVE (NEGATIVE); *BENZODIAZEPINES SCREEN URINE NEGATIVE (NEGATIVE); *COCAINE SCREEN URINE PRESUMTIVE POSITIVE (NEGATIVE)
[2019-03-11 02:51] LABS: CANNABINOID URINE SCREEN PRESUMTIVE POSITIVE (NEGATIVE); METHADONE URINE SCREEN NEGATIVE (NEGATIVE); OPIATES URINE SCREEN NEGATIVE (NEGATIVE); PHENCYCLIDINE URINE SCREEN NEGATIVE (NEGATIVE)
[2019-03-11 04:00] VITALS: BP 152/62
[2019-03-11] MEDS: HYDRALAZINE HCL 25MG TABLET PO SCH (05:35)
[2019-03-11] MEDS: SODIUM CHLORIDE 0.9% 1,000 ML IV SCH (05:36)
[2019-03-11 08:00] VITALS: BP 175/93
[2019-03-11] MEDS: LOSARTAN POTASSIUM 50 MG TABLET PO SCH (08:53)
[2019-03-11] MEDS: CLONIDINE 0.1MG TABLET PO PRN (08:53)
[2019-03-11] MEDS: AMLODIPINE 5MG TABLET PO SCH ×2 (08:53→21:20)
[2019-03-11] MEDS: PANTOPRAZOLE 40MG DR TABLET PO SCH ×2 (08:54→21:20)
[2019-03-11] MEDS: SERTRALINE HCL 25MG TABLET PO SCH (08:54)
[2019-03-11] MEDS ORDERED: HYDROCHLOROTHIAZIDE 25MG TABLET PO SCH (09:00)
[2019-03-11 10:44] LABS: CHLORIDE 105 mEq/L (98-107)
[2019-03-11 10:48] LABS: BASOPHILS % 0.7 % (0.0-2.0); EOSINOPHILS % 3.5 % (0.0-5.0); LYMPHOCYTES % 22.6 % (20.0-50.0); MEAN CORPUSCULAR HEMOGLOBIN 29.1 pg (28.0-32.0); MEAN CORPUSCULAR VOLUME 89.9 fL (80.0-94.0); MEAN PLATELET VOLUME 7.4 fl (7.4-10.4); NEUTROPHILS % 66.2 % (40.0-76.0); PLATELET 373 x1000/uL (130-400); RED CELL DISTRIBUTION WIDTH 15.9 % (11.6-14.6)
[2019-03-11 10:50] LABS: HEMATOCRIT. 33.2 % (42.0-52.0); HEMOGLOBIN. 10.8 g/dL (14.0-18.0)
[2019-03-11 10:52] LABS: LDL CHOLESTEROL 109 mg/dL (5-100); PHOSPHORUS 2.1 mg/dL (2.5-4.9)
[2019-03-11 10:53] LABS: CREATINE KINASE 175 IU/L (39-308)
[2019-03-11 10:54] LABS: HDL CHOLESTEROL 63 mg/dL (40-59)
[2019-03-11 12:00] VITALS: BP 160/85
[2019-03-11] MEDS: FERROUS SULFATE 325MG TABLET PO SCH ×2 (12:40→13:33)
[2019-03-11] MEDS: HYDRALAZINE HCL 50MG TABLET PO SCH ×2 (13:32→21:20)
[2019-03-11] MEDS: POTASSIUM PHOS,M-BASIC-D-BASIC 15 MMOL in DEXT 5% WATER 245 ML IV SCH ×2 (15:00→16:54)
[2019-03-11 16:00] VITALS: BP 150/59
[2019-03-11] MEDS: HYDROCODONE/ACETAMINOPHEN 5/325MG TABLET PO PRN ×2 (18:11→23:00)
[2019-03-11 20:00] VITALS: BP 147/67
[2019-03-12] VITALS: BP 110/59
[2019-03-12] MEDS: SODIUM CHLORIDE 0.9% 1,000 ML IV SCH ×2 (03:10→23:10)
[2019-03-12 04:00] VITALS: BP 136/56
[2019-03-12] MEDS: HYDROCODONE/ACETAMINOPHEN 5/325MG TABLET PO PRN ×3 (05:30→21:48)
[2019-03-12] MEDS: HYDRALAZINE HCL 50MG TABLET PO SCH ×3 (05:32→21:48)
[2019-03-12 08:00] VITALS: BP 126/63
[2019-03-12] MEDS: SERTRALINE HCL 25MG TABLET PO SCH ×2 (09:00→09:38)
[2019-03-12] MEDS: FERROUS SULFATE 325MG TABLET PO SCH ×3 (09:38→18:05)
[2019-03-12] MEDS: AMLODIPINE 5MG TABLET PO SCH ×2 (09:38→21:48)
[2019-03-12] MEDS: LOSARTAN POTASSIUM 50 MG TABLET PO SCH (09:38)
[2019-03-12] MEDS: PANTOPRAZOLE 40MG DR TABLET PO SCH ×2 (09:38→21:48)
[2019-03-12 12:00] VITALS: BP 148/61
[2019-03-12 16:00] VITALS: BP 152/70
[2019-03-12 20:00] VITALS: BP 152/72
[2019-03-13] MEDS: HYDRALAZINE HCL 50MG TABLET PO SCH (05:47)
[2019-03-13 08:00] VITALS: BP 164/83
[2019-03-13] MEDS ORDERED: ASCORBIC ACID 500 MG TABLET PO SCH (08:10)
[2019-03-13] MEDS: PANTOPRAZOLE 40MG DR TABLET PO SCH (08:45)
[2019-03-13] MEDS: FERROUS SULFATE 325MG TABLET PO SCH (08:45)
[2019-03-13] MEDS: LOSARTAN POTASSIUM 50 MG TABLET PO SCH (09:38)
[2019-03-13] MEDS: AMLODIPINE 5MG TABLET PO SCH (09:38)
[2019-03-13] MEDS: SERTRALINE HCL 25MG TABLET PO SCH (09:42)
== END 2019-03-13 12:15 | disposition left against medical advice (07) | DRG 253 ==
LOC: ER 01:09 → EDBEDREQ 10:19 → 7WST 11:45 → EDBEDREQ 11:46 → ENRESERV 13:06 → 7WST 03-12 11:41
PROVIDERS: ADMIT Internal Medicine; ATTEND Internal Medicine
DX: K92.2 Gastrointestinal hemorrhage, unspecified (principal); N17.9 Acute kidney failure, unspecified; I13.10 Hypertensive heart and chronic kidney disease without heart failure, with stage 1 through stage 4 chronic kidney disease, or unspecified chronic kidney disease; E44.1 Mild protein-calorie malnutrition; E11.65 Type 2 diabetes mellitus with hyperglycemia; E78.5 Hyperlipidemia, unspecified; F17.200 Nicotine dependence, unspecified, uncomplicated; D50.0 Iron deficiency anemia secondary to blood loss (chronic); F41.9 Anxiety disorder, unspecified; G40.909 Epilepsy, unspecified, not intractable, without status epilepticus; M10.9 Gout, unspecified; M19.90 Unspecified osteoarthritis, unspecified site; N18.2 Chronic kidney disease, stage 2 (mild); Z93.3 Colostomy status; Z68.1 Body mass index [BMI] 19.9 or less, adult; Z59.0 Homelessness; K80.20 Calculus of gallbladder without cholecystitis without obstruction; Z82.49 Family history of ischemic heart disease and other diseases of the circulatory system; Z79.84 Long term (current) use of oral hypoglycemic drugs
CPT/HCPCS: 36415; 71045; 76770; 80061; 80305; 81003; 82550; 82553; 82607; 82728; 82746; 83540; 83550; 83735; 84100; 84443; 85014; 85018; 93970; 99285; J3490; J7060

== ENCOUNTER 2019-04-05 23:35 | Inpatient (IN) | payer OTHER ==
[~2019-04-05] VITALS: Ht 170.2 cm; Wt 69.9 kg
[2019-04-06] MEDS ORDERED: NITROGLYCERIN OINT 1GM/INCH UDPKT TD ONE (01:15)
[2019-04-06 01:37] LABS: BASOPHILS % 0.4 % (0.0-2.0); EOSINOPHILS % 1.4 % (0.0-5.0); HEMATOCRIT. 27.9 % (42.0-52.0); HEMOGLOBIN. 9.2 g/dL (14.0-18.0); LYMPHOCYTES % 23.2 % (20.0-50.0); MEAN CORPUSCULAR HEMOGLOBIN 29.6 pg (28.0-32.0); MEAN CORPUSCULAR VOLUME 90.1 fL (80.0-94.0); MEAN PLATELET VOLUME 7.2 fl (7.4-10.4); MONOCYTES % 7.8 % (2.0-8.0); NEUTROPHILS % 67.2 % (40.0-76.0); PLATELET 305 x1000/uL (130-400); RED CELL DISTRIBUTION WIDTH 14.9 % (11.6-14.6)
[2019-04-06 01:39] LABS: CHLORIDE 108 mEq/L (98-107)
[2019-04-06 01:41] LABS: PROTHROMBIN TIME 9.9 sec (9.6-11.0)
[2019-04-06 01:43] LABS: ETHANOL BLOOD < 10 mg/dL
[2019-04-06 08:00] VITALS: BP 159/81
[2019-04-06] MEDS: SODIUM CHLORIDE 0.9% 1,000 ML IV SCH (08:31)
[2019-04-06] MEDS ORDERED: IPRATROPIUM/ALBUTEROL 0.5-3(2.5)MG/3ML NEB HHN PRN (08:45)
[2019-04-06] MEDS ORDERED: MAGNESIUM/ALUMINUM HYDROXIDE/SIMETHICONE 30ML UDC PO PRN (08:45)
[2019-04-06] MEDS ORDERED: DOCUSATE SODIUM 100MG CAPSULE PO PRN (08:45)
[2019-04-06] MEDS ORDERED: DIPHENHYDRAMINE 50MG/ML VIAL IV PRN (08:45)
[2019-04-06] MEDS ORDERED: GUAIFENESIN 200MG/10ML SUGAR FREE UDC PO PRN (08:45)
[2019-04-06 09:04] VITALS: BP 138/82
[2019-04-06 09:20] LABS: *BARBITURATES SCREEN URINE NEGATIVE (NEGATIVE)
[2019-04-06 09:21] LABS: *AMPHETAMINES SCREEN URINE NEGATIVE (NEGATIVE); *BENZODIAZEPINES SCREEN URINE NEGATIVE (NEGATIVE); *COCAINE SCREEN URINE PRESUMTIVE POSITIVE (NEGATIVE); CANNABINOID URINE SCREEN PRESUMTIVE POSITIVE (NEGATIVE); METHADONE URINE SCREEN NEGATIVE (NEGATIVE); OPIATES URINE SCREEN NEGATIVE (NEGATIVE); PHENCYCLIDINE URINE SCREEN NEGATIVE (NEGATIVE)
[2019-04-06 11:08] LABS: PHOSPHORUS 2.7 mg/dL (2.5-4.9)
[2019-04-06 16:00] VITALS: BP 161/72
[2019-04-06] MEDS ORDERED: SORBITOL 70% SOLN 30ML PO NR ×2 (16:00→20:00)
[2019-04-06] MEDS: ACETAMINOPHEN 325MG TABLET PO PRN (18:01)
[2019-04-06 20:00] VITALS: BP 173/69
[2019-04-06] MEDS: PANTOPRAZOLE SODIUM 40 MG/VIAL IV SCH (21:39)
[2019-04-07] VITALS: BP 165/75
[2019-04-07 04:00] VITALS: BP 152/71
[2019-04-07] MEDS ORDERED: SORBITOL 70% SOLN 30ML PO NR (06:00)
[2019-04-07 08:00] VITALS: BP_SYST 169; BP_SYST 172; BP_DIAS 76
[2019-04-07] MEDS: PANTOPRAZOLE SODIUM 40 MG/VIAL IV SCH ×2 (09:00→21:04)
[2019-04-07 12:00] VITALS: BP 171/94
[2019-04-07] MEDS ORDERED: PROPOFOL 200MG/20ML VIAL IV ONE (16:29)
[2019-04-07] MEDS ORDERED: MIDAZOLAM HCL 2 MG/2 ML VIAL ONE (16:30)
[2019-04-07] MEDS ORDERED: SIMETHICONE 40 MG/0.6 ML 30ML ONE (16:37)
[2019-04-07] MEDS ORDERED: LIDOCAINE HCL 1% 20ML VIAL (Pyxis) INJ ONE (16:42)
[2019-04-07 17:00] VITALS: BP 163/76
[2019-04-07] MEDS ORDERED: HYDRALAZINE 20MG/ML VIAL ONE (17:05)
[2019-04-07] MEDS ORDERED: PANT40TA4 MT (17:48)
[2019-04-07 20:00] VITALS: BP 177/80
[2019-04-07] MEDS: ONDANSETRON HCL 4MG/2ML INJ IV PRN ×2 (21:04→22:25)
[2019-04-07] MEDS: CLONIDINE 0.1MG TABLET PO PRN (21:05)
[2019-04-07] MEDS ORDERED: HALOPERIDOL LACTATE 5MG/ML VIAL IM PRN (22:45)
[2019-04-08] VITALS (8 sets, daily range): BP systolic 107–227; BP diastolic 42–97
[2019-04-08] MEDS: CLONIDINE 0.1MG TABLET PO PRN ×2 (00:44→08:15)
[2019-04-08] MEDS: ACETAMINOPHEN 325MG TABLET PO PRN (00:45)
[2019-04-08] MEDS: SODIUM CHLORIDE 0.9% 1,000 ML IV SCH ×2 (02:37→21:44)
[2019-04-08] MEDS ORDERED: METOCLOPRAMIDE HCL 10MG/2ML VIAL IV PRN (05:15)
[2019-04-08] MEDS: MORPHINE SULFATE 2 MG/ML CPJ (NOT FOR IM USE) IV PRN ×2 (05:23→17:21)
[2019-04-08 07:12] LABS: HEMATOCRIT. 33.5 % (42.0-52.0); HEMOGLOBIN. 10.8 g/dL (14.0-18.0); MEAN CORPUSCULAR HEMOGLOBIN 29.2 pg (28.0-32.0); MEAN CORPUSCULAR VOLUME 90.6 fL (80.0-94.0); RED CELL DISTRIBUTION WIDTH 14.6 % (11.6-14.6)
[2019-04-08 08:10] LABS: PLATELET 368 x1000/uL (130-400)
[2019-04-08 08:11] LABS: PLATELET ESTIMATE NORMAL
[2019-04-08] MEDS: PANTOPRAZOLE SODIUM 40 MG/VIAL IV SCH ×2 (08:15→21:43)
[2019-04-08 08:25] LABS: CHLORIDE 103 mEq/L (98-107)
[2019-04-08 08:34] LABS: PHOSPHORUS 3.1 mg/dL (2.5-4.9)
[2019-04-08] MEDS ORDERED: CLONAZEPAM 0.5MG TABLET PO PRN (11:30)
[2019-04-08] MEDS: SERTRALINE HCL 25MG TABLET PO SCH (12:18)
[2019-04-08] MEDS: AMLODIPINE 5MG TABLET PO SCH ×2 (12:18→21:43)
[2019-04-08] MEDS: HYDROCHLOROTHIAZIDE 25MG TABLET PO SCH (12:18)
[2019-04-08] MEDS: LOSARTAN POTASSIUM 50 MG TABLET PO SCH (12:18)
[2019-04-08 20:00] LABS: CLARITY URINE CLEAR (CLEAR); COLOR URINE YELLOW (YELLOW); KETONES URINE TRACE (NEGATIVE); LEUKOCYTE ESTERASE URINE NEGATIVE (NEGATIVE); NITRITE URINE NEGATIVE (NEGATIVE); OCCULT BLOOD URINE NEGATIVE (NEGATIVE); PH URINE 5.5 (4.5-8.0); PROTEIN URINE 1+ (NEGATIVE); SPECIFIC GRAVITY URINE 1.026 (1.005-1.030); UROBILINOGEN URINE 0.2 E.U./dL (0.2-1.0)
[2019-04-09] VITALS: BP 125/68
[2019-04-09] MEDS: MORPHINE SULFATE 2 MG/ML CPJ (NOT FOR IM USE) IV PRN (01:47)
[2019-04-09 04:00] VITALS: BP 118/63
[2019-04-09 07:22] LABS: BASOPHILS % 0.9 % (0.0-2.0); EOSINOPHILS % 1.1 % (0.0-5.0); HEMATOCRIT. 30.4 % (42.0-52.0); HEMOGLOBIN. 10.3 g/dL (14.0-18.0); LYMPHOCYTES % 32.2 % (20.0-50.0); MEAN CORPUSCULAR VOLUME 88.5 fL (80.0-94.0); MONOCYTES % 9.1 % (2.0-8.0); NEUTROPHILS % 56.7 % (40.0-76.0); PLATELET 383 x1000/uL (130-400); RED BLOOD CELL COUNT 3.43 mill/uL (4.7-6.1); RED CELL DISTRIBUTION WIDTH 14.6 % (11.6-14.6)
[2019-04-09 07:58] LABS: CHLORIDE 100 mEq/L (98-107)
[2019-04-09 08:00] VITALS: BP 131/69
[2019-04-09 08:05] LABS: PHOSPHORUS 3.6 mg/dL (2.5-4.9)
[2019-04-09] MEDS: HYDROCHLOROTHIAZIDE 25MG TABLET PO SCH (08:30)
[2019-04-09] MEDS: AMLODIPINE 5MG TABLET PO SCH (08:30)
[2019-04-09] MEDS: LOSARTAN POTASSIUM 50 MG TABLET PO SCH (08:30)
[2019-04-09] MEDS: SERTRALINE HCL 25MG TABLET PO SCH (08:30)
[2019-04-09] MEDS: PANTOPRAZOLE SODIUM 40 MG/VIAL IV SCH (08:30)
[2019-04-09 10:59] VITALS: BP 131/69
[2019-04-09 12:00] VITALS: BP 121/64
== END 2019-04-09 13:57 | disposition home or self-care (01) | DRG 241 ==
LOC: ER 23:35 → 8WST 04-06 03:20 → EDBEDREQTM 04-06 03:23 → EDBEDREQ 04-06 03:23 → ENRESERV 04-06 07:01
PROVIDERS: ADMIT Internal Medicine; ATTEND Internal Medicine
PROC: 0DB78ZX Excision of Stomach, Pylorus, Via Natural or Artificial Opening Endoscopic, Diagnostic (ICD-10-PCS; principal; 2019-04-07)
PROC: 0DJD8ZZ Inspection of Lower Intestinal Tract, Via Natural or Artificial Opening Endoscopic (ICD-10-PCS; 2019-04-07)
DX: K29.71 Gastritis, unspecified, with bleeding (principal); K85.90 Acute pancreatitis without necrosis or infection, unspecified; N17.9 Acute kidney failure, unspecified; N18.3 Chronic kidney disease, stage 3 (moderate); K22.2 Esophageal obstruction; D64.9 Anemia, unspecified; K44.9 Diaphragmatic hernia without obstruction or gangrene; K29.81 Duodenitis with bleeding; E78.5 Hyperlipidemia, unspecified; I12.9 Hypertensive chronic kidney disease with stage 1 through stage 4 chronic kidney disease, or unspecified chronic kidney disease; M10.9 Gout, unspecified; M19.90 Unspecified osteoarthritis, unspecified site; F14.129 Cocaine abuse with intoxication, unspecified; K57.90 Diverticulosis of intestine, part unspecified, without perforation or abscess without bleeding; F12.10 Cannabis abuse, uncomplicated; E78.00 Pure hypercholesterolemia, unspecified; F17.200 Nicotine dependence, unspecified, uncomplicated; F41.9 Anxiety disorder, unspecified; G40.909 Epilepsy, unspecified, not intractable, without status epilepticus; Z79.899 Other long term (current) drug therapy
CPT/HCPCS: 36415; 71045; 76770; 80048; 80305; 80320; 81003; 83605; 83735; 83880; 84100; 84484; 86850; 86900; 88305; 88312; 88313; 93005; 93970; 99285; C1893; C9113; J0360; J1630; J2250; J2270; J2405; J2704; J2765; J3490; J7030; G0480

== ENCOUNTER 2019-06-16 02:19 | Emergency (ER) | payer OTHER ==
[~2019-06-16] VITALS: Ht 175.3 cm; Wt 64.0 kg
[~2019-06-16 02:19] MED LIST changes: +PANT40TA4 MT
[2019-06-16] MEDS ORDERED: KETOROLAC 60MG/2ML VIAL IM STA (03:18)
[2019-06-16 03:43] LABS: BASOPHILS % 1.8 % (0.0-2.0); EOSINOPHILS % 2.9 % (0.0-5.0); HEMATOCRIT. 28.5 % (42.0-52.0); HEMOGLOBIN. 9.2 g/dL (14.0-18.0); LYMPHOCYTES % 18.9 % (20.0-50.0); MEAN CORPUSCULAR HEMOGLOBIN 28.1 pg (28.0-32.0); MEAN CORPUSCULAR VOLUME 86.7 fL (80.0-94.0); MEAN PLATELET VOLUME 7.3 fl (7.4-10.4); MONOCYTES % 7.7 % (2.0-8.0); NEUTROPHILS % 68.7 % (40.0-76.0); PLATELET 328 x1000/uL (130-400); RED BLOOD CELL COUNT 3.29 mill/uL (4.7-6.1); RED CELL DISTRIBUTION WIDTH 15.3 % (11.6-14.6)
[2019-06-16 03:48] LABS: CHLORIDE 111 mEq/L (98-107)
[2019-06-16 03:53] LABS: ETHANOL BLOOD < 10 mg/dL
[2019-06-16 04:59] LABS: CLARITY URINE CLEAR (CLEAR); COLOR URINE YELLOW (YELLOW); KETONES URINE TRACE (NEGATIVE); LEUKOCYTE ESTERASE URINE NEGATIVE (NEGATIVE); NITRITE URINE NEGATIVE (NEGATIVE); OCCULT BLOOD URINE NEGATIVE (NEGATIVE); PROTEIN URINE NEGATIVE (NEGATIVE); SPECIFIC GRAVITY URINE 1.025 (1.005-1.030); UROBILINOGEN URINE 0.2 E.U./dL (0.2-1.0)
[2019-06-16 05:07] LABS: *AMPHETAMINES SCREEN URINE NEGATIVE (NEGATIVE); *BARBITURATES SCREEN URINE NEGATIVE (NEGATIVE); *BENZODIAZEPINES SCREEN URINE NEGATIVE (NEGATIVE)
[2019-06-16 05:08] LABS: *COCAINE SCREEN URINE PRESUMTIVE POSITIVE (NEGATIVE); CANNABINOID URINE SCREEN PRESUMTIVE POSITIVE (NEGATIVE); METHADONE URINE SCREEN NEGATIVE (NEGATIVE); OPIATES URINE SCREEN PRESUMTIVE POSITIVE (NEGATIVE); PHENCYCLIDINE URINE SCREEN NEGATIVE (NEGATIVE)
[2019-06-16] MEDS ORDERED: ACETAMINOPHEN 325MG TABLET PO ONE (20:45)
[2019-06-17 03:00] VITALS: BP 140/67
== END 2019-06-17 03:20 ==
LOC: ER 02:19
DX: R45.851 Suicidal ideations (principal); M79.10 Myalgia, unspecified site; D64.9 Anemia, unspecified; I10 Essential (primary) hypertension; E78.00 Pure hypercholesterolemia, unspecified; N28.9 Disorder of kidney and ureter, unspecified; F17.200 Nicotine dependence, unspecified, uncomplicated; F12.10 Cannabis abuse, uncomplicated; Z59.0 Homelessness; Z87.19 Personal history of other diseases of the digestive system; Z93.3 Colostomy status; Z88.8 Allergy status to other drugs, medicaments and biological substances; Z79.899 Other long term (current) drug therapy
CPT/HCPCS: 36415; 80053; 80305; 80320; 81003; 83690; 85025; 96372; 99285; J1885; Z7610; G0480

== ENCOUNTER 2019-08-02 05:53 | Emergency (ER) | payer OTHER ==
[~2019-08-02] VITALS: Ht 162.6 cm; Wt 66.0 kg
[2019-08-02 07:53] VITALS: BP 164/77
== END 2019-08-02 09:47 | disposition home or self-care (01) ==
LOC: ER 05:53
DX: K94.01 Colostomy hemorrhage (principal); I10 Essential (primary) hypertension; F12.10 Cannabis abuse, uncomplicated; Z88.8 Allergy status to other drugs, medicaments and biological substances; Z98.890 Other specified postprocedural states; Z79.899 Other long term (current) drug therapy
CPT/HCPCS: 99281

== ENCOUNTER 2019-08-11 01:12 | Emergency (ER) | payer OTHER ==
[~2019-08-11] VITALS: Ht 177.8 cm; Wt 59.0 kg
[2019-08-11 11:49] VITALS: BP 142/79
== END 2019-08-11 11:52 | disposition home or self-care (01) ==
LOC: ER 01:12
DX: R45.851 Suicidal ideations (principal); I10 Essential (primary) hypertension; Z59.0 Homelessness; Z93.3 Colostomy status; Z88.8 Allergy status to other drugs, medicaments and biological substances; Z79.899 Other long term (current) drug therapy; Z87.39 Personal history of other diseases of the musculoskeletal system and connective tissue; Z87.19 Personal history of other diseases of the digestive system
CPT/HCPCS: 99281

== ENCOUNTER 2019-08-30 01:04 | Emergency (ER) | payer MEDICAID, OTHER ==
[~2019-08-30] VITALS: Ht 177.8 cm; Wt 61.0 kg
[2019-08-30] MEDS ORDERED: PREDNISONE 20MG TABLET PO ONE (03:30)
[2019-08-30] MEDS ORDERED: IBUPROFEN 600MG TABLET PO ONE (03:30)
[2019-08-30] MEDS ORDERED: ACETAMINOPHEN 325MG TABLET PO ONE (03:30)
[2019-08-30 03:47] LABS: CHLORIDE 106 mEq/L (98-107)
[2019-08-30 03:49] LABS: HEMATOCRIT 29.9 % (42.0-52.0); HEMOGLOBIN 9.9 g/dL (14.0-18.0); MEAN CORPUSCULAR HEMOGLOBIN 29.6 pg (28.0-32.0); MEAN CORPUSCULAR VOLUME 89.1 fL (80.0-94.0); PLATELET 332 x1000/uL (130-400); RED BLOOD CELL COUNT 3.36 mill/uL (4.7-6.1); RED CELL DISTRIBUTION WIDTH 16.1 % (11.6-14.6)
[2019-08-30 03:53] LABS: ETHANOL BLOOD < 10 mg/dL
[2019-08-30 06:50] VITALS: BP 118/68
== END 2019-08-30 07:14 | disposition home or self-care (01) ==
LOC: ER 01:04
DX: M10.9 Gout, unspecified (principal); F14.10 Cocaine abuse, uncomplicated; F17.290 Nicotine dependence, other tobacco product, uncomplicated; F15.10 Other stimulant abuse, uncomplicated; Z87.19 Personal history of other diseases of the digestive system; Z93.3 Colostomy status; Z79.899 Other long term (current) drug therapy; Z88.8 Allergy status to other drugs, medicaments and biological substances
CPT/HCPCS: 36415; 80053; 80320; 85027; 99284; J7512; G0480

== ENCOUNTER 2021-12-31 03:54 | Emergency (ER) | payer MEDICAID ==
[~2021-12-31] VITALS: Ht 175.3 cm; Wt 61.4 kg
[~2021-12-31 03:54] MED LIST changes: -PANT40TA4 MT; +PANT40TA51 MT
[2021-12-31] MEDS ORDERED: ACETAMINOPHEN 325MG TABLET PO ONE (06:00)
[2021-12-31] MEDS ORDERED: IBUPROFEN 400MG TABLET PO ONE (06:00)
[2021-12-31] MEDS ORDERED: POLY17PO3 MT (06:54)
[2021-12-31 07:37] VITALS: BP 148/86
== END 2021-12-31 07:38 | disposition home or self-care (01) ==
LOC: ER 03:54
DX: S31.114D Laceration without foreign body of abdominal wall, left lower quadrant without penetration into peritoneal cavity, subsequent encounter (principal); X58.XXXD Exposure to other specified factors, subsequent encounter; K59.00 Constipation, unspecified; E78.00 Pure hypercholesterolemia, unspecified; I10 Essential (primary) hypertension; Z87.891 Personal history of nicotine dependence; F14.10 Cocaine abuse, uncomplicated; F15.10 Other stimulant abuse, uncomplicated; Z79.899 Other long term (current) drug therapy
CPT/HCPCS: 99283; Z7610